=== PATIENT | female | born 1990 | race Caucasian/White ===

== ENCOUNTER 2018-04-04 13:09 | Inpatient (IN) | payer BC ==
[2018-04-04] MEDS ORDERED: Lidocaine 1% 50 ML MDV INJECT PRN (14:32)
[2018-04-04] MEDS ORDERED: Nalbuphine 10 MG/ML 10 ML MDV IVPUSH PRN (14:32)
[2018-04-04] MEDS ORDERED: Terbutaline 1 MG/ML SDV SUBCUT PRN (14:32)
[2018-04-04] MEDS ORDERED: Tranexamic Acid 1,000 MG in Sodium Chloride 0.9% 100 ML IV PRN (14:32)
[2018-04-04] MEDS ORDERED: Misoprostol 200 MCG Tab PO PRN (14:32)
[2018-04-04] MEDS ORDERED: Water For Irrigation,Sterile 1,000 ML Container IRR PRN (14:32)
[2018-04-04] MEDS ORDERED: Sodium Chloride 0.9% 10 ML Syringe FLUSH PRN (14:32)
[2018-04-04] MEDS ORDERED: Carboprost Tromethamine 250 MCG/1 ML Amp IM PRN (14:32)
[2018-04-04] MEDS ORDERED: Sodium Chloride 0.9% 2.5 ML Syringe FLUSH PRN (14:32)
[2018-04-04] MEDS ORDERED: Methylergonovine 0.2 MG/1 ML Amp IM PRN (14:32)
[2018-04-04] MEDS ORDERED: Butorphanol 1 MG/ML SDV IVPUSH PRN (14:32)
[2018-04-04] MEDS ORDERED: Oxytocin/0.9 % Sodium Chloride 30 UNIT/500 ML BAG IV SCH ×2 (14:45)
[2018-04-04] MEDS: Lactated Ringers 1,000 ML IV SCH ×3 (15:00→18:57)
[2018-04-04] MEDS ORDERED: Ampicillin 2 GM in Sodium Chloride 0.9% 100 ML IV ONE (15:00)
[2018-04-04] MEDS ORDERED: fentaNYL 100 MCG/2 ML SDV ONE (18:00)
[2018-04-04] MEDS ORDERED: Ampicillin 1 GM in Sodium Chloride 0.9% 50 ML IV SCH (19:00)
--- NOTE | 2018-04-04 19:34 | PCM.PREANE ---
Preanesthetic Assessment - Anesthesia/Transfusion/Family Hx Anesthesia History: Prior Anesthesia Without Reaction (labor epidural without problems 2 1/2 yrs ago) Family History of Anesthesia Reaction: No Transfusion History: No Prior Transfusion(s) Intubation History: Unknown - Review of Systems General: No Symptoms, Night Sweats Cardiovascular: No Symptoms Gastrointestinal: No Symptoms Neurological: No Symptoms Other: Reports: None - Physical Assessment NPO Status Date: 04/04/18 NPO Status Time: 12:00 (sips/chips) Height: 5 ft 6 in Weight: 205 lb ASA Class: 2 Mental Status: Alert & Oriented x3 Airway Class: Mallampati = 1 Dentition: Reports: Normal Dentition Thyro-Mental Finger Breadths: 3 Mouth Opening Finger Breadths: 3 ROM/Head Extension: Full Lungs: Clear to Auscultation, Normal Respiratory Effort Cardiovascular: Regular Rate, Regular Rhythm - Lab Values: Laboratory Last Values WBC 10.82 K/uL (4.0-11.0) 04/04/18 14:55 RBC 4.37 M/uL (4.30-5.90) 04/04/18 14:55 Hgb 11.6 g/dL (12.0-16.0) L 04/04/18 14:55 Hct 35.1 % (36.0-46.0) L 04/04/18 14:55 MCV 80.3 fL (80.0-98.0) 04/04/18 14:55 MCH 26.5 pg (27.0-32.0) L 04/04/18 14:55 MCHC 33.0 g/dL (31.0-37.0) 04/04/18 14:55 RDW Std Deviation 48.1 fl (28.0-62.0) 04/04/18 14:55 RDW Coeff of Chuck 16 % (11.0-15.0) H 04/04/18 14:55 Plt Count 248 K/uL (150-400) 04/04/18 14:55 MPV 11.20 fL (7.40-12.00) 04/04/18 14:55 Nucleated RBC % 0.0 /100WBC 04/04/18 14:55 Nucleated RBCs # 0 K/uL 04/04/18 14:55 Membrane Rupture POSITIVE 04/04/18 13:30 Blood Type A POSITIVE 04/04/18 14:55 Antibody Screen NEGATIVE 04/04/18 14:55 - Allergies Allergies/Adverse Reactions: Allergies Allergy/AdvReac Type Severity Reaction Status Date / Time No Known Allergies Allergy Verified 11/01/16 15:21 - Blood Blood Available: No Product(s) Available: None - Anesthesia Plan Free Text/Narrative:: Labor Epidural Pre-Op Medication Ordered: None - Acknowledgements Anesthesia Type Planned: Epidural Pt an Appropriate Candidate for the Planned Anesthesia: Yes Alternatives and Risks of Anesthesia Discussed w Pt/Guardian: Yes Pt/Guardian Understands and Agrees with Anesthesia Plan: Yes PreAnesthesia Questionnaire Respiratory History: Reports: Asthma (well controlled) Psychiatric History: Reports: Anxiety, Depression - Infectious Disease History Infectious Disease History: Reports: Chicken Pox - Past Surgical History HEENT Surgical History: Reports: Oral Surgery, Tonsillectomy, Other (See Below) - HOME MEDS Home Medications: Home Meds Albuterol [Ventolin HFA] 1 puff IN DAILY 09/06/14 [History] Mometasone/Formoterol [Dulera 100 Mcg/5 Mcg Inhaler] 1 puff IN DAILY 09/06/14 [ History] Montelukast [Singulair] 10 mg PO DAILY 09/06/14 [History] Sertraline [Zoloft] 100 mg PO DAILY 11/01/16 [History] - CURRENT (IN HOUSE) MEDS Current Meds: Current Medications Butorphanol Tartrate (Stadol) 1 mg IVPUSH Q1H PRN PRN Reason: Pain Carboprost Tromethamine (Hemabate Ds) 250 mcg IM ASDIRECTED PRN PRN Reason: Post Hemorrhage Tranexamic Acid 1,000 mg/ (Sodium Chloride) 110 mls @ 660 mls/hr IV ONETIME PRN PRN Reason: Bleeding Lactated Ringer's (Ringers, Lactated) 1,000 mls @ 150 mls/hr IV ASDIRECTED JULIUS Last Admin: 04/04/18 18:57 Dose: 150 mls/hr Oxytocin/Sodium Chloride (Oxytocin 30 Unit/500 Ml-Ns) 30 unit in 500 mls @ 999 mls/hr IV TITRATE JULIUS Oxytocin/Sodium Chloride (Oxytocin 30 Unit/500 Ml-Ns) 30 unit in 500 mls @ 2 mls/hr IV TITRATE JULIUS; Protocol Last Titration: 04/04/18 18:52 Dose: 16 munits/min, 16 mls/hr Ampicillin Sodium 1 gm/ Sodium (Chloride) 50 mls @ 100 mls/hr IV Q4H JULIUS Lidocaine HCl (Xylocaine 1%) 50 ml INJECT .ONCE PRN PRN Reason: Laceration repair Methylergonovine Maleate (Methergine) 0.2 mg IM ASDIRECTED PRN PRN Reason: Post Hemorrhage Misoprostol (Cytotec) 200 mcg PO .ONCE PRN PRN Reason: Post Hemorrhage Nalbuphine HCl (Nubain) 10 mg IVPUSH Q1H PRN PRN Reason: Pain (severe 7-10) Sodium Chloride (Saline Flush) 10 ml FLUSH ASDIRECTED PRN PRN Reason: Keep Vein Open Sodium Chloride (Saline Flush) 2.5 ml FLUSH ASDIRECTED PRN PRN Reason: Keep Vein Open Sterile Water (Sterile Water For Irrigation) 1,000 ml IRR ASDIRECTED PRN PRN Reason: delivery Terbutaline Sulfate (Brethine) 0.25 mg SUBCUT ASDIRECTED PRN PRN Reason: Tacysystole Discontinued Medications Fentanyl (Sublimaze) Confirm Administered Dose 100 mcg .ROUTE .STK-MED ONE Stop: 04/04/18 18:01 Ampicillin Sodium 2 gm/ Sodium (Chloride) 100 mls @ 200 mls/hr IV ONETIME ONE Stop: 04/04/18 15:29 Last Admin: 04/04/18 15:42 Dose: 200 mls/hr Ampicillin Sodium 1 gm/ Sodium (Chloride) 50 mls @ 100 mls/hr IV Q4H [facility] Fentanyl/Bupivacaine HCl (Bzgyqhht-Wzdth-Id 2 Mcg/Ml-0.125%) Confirm Administered Dose 100 mls @ as directed EP .STK-MED ONE Stop: 04/04/18 18:01
[2018-04-04] MEDS: Ampicillin 1 GM in Sodium Chloride 0.9% 50 ML IV SCH (19:38)
[2018-04-05] MEDS: Ampicillin 1 GM in Sodium Chloride 0.9% 50 ML IV SCH (03:49)
[2018-04-05] MEDS ORDERED: Acetaminophen 500 MG Tab PO PRN (06:24)
[2018-04-05] MEDS ORDERED: Witch Hazel Medicated Pads 40/Jar TOP PRN (06:24)
[2018-04-05] MEDS ORDERED: Docusate Sodium 100 MG Cap PO PRN (06:24)
[2018-04-05] MEDS ORDERED: Benzocaine/Menthol 20%-0.5% Spray 78 GM Cannister TOP PRN (06:24)
[2018-04-05] MEDS ORDERED: Bisacodyl 10 MG Supp RECTAL PRN (06:24)
[2018-04-05] MEDS ORDERED: Lanolin 100% Cream 7 GM Tube TOP PRN (06:24)
[2018-04-05] MEDS ORDERED: Methylergonovine 0.2 MG/1 ML Amp IM PRN (06:24)
[2018-04-05] MEDS ORDERED: Ibuprofen 400 MG Tab PO PRN (06:24)
--- NOTE | 2018-04-05 06:47 | PCM48HPAN ---
Post Anesthesia Note - EVALUATION WITHIN 48HRS OF ANESTHETIC Vital Signs in Normal Range: Yes Patient Participated in Evaluation: Yes Respiratory Function Stable: Yes Airway Patent: Yes Cardiovascular Function Stable: Yes Hydration Status Stable: Yes Pain Control Satisfactory: Yes Nausea and Vomiting Control Satisfactory: Yes Mental Status Recovered: Yes - COMMENTS/OBSERVATIONS Free Text/Narrative:: Pt doing well with good pain control thru labor. No apparent anesthesia complications.
--- NOTE | 2018-04-05 07:15 | OR ---
SURGEON: Yoko Parra M.D. DATE OF PROCEDURE: 04/05/2018 PREOPERATIVE DIAGNOSES: 1. A 39-4/7 weeks' gestation. 2. Premature rupture of membranes with induction. 3. Group B Streptococcus positive. POSTOPERATIVE DIAGNOSES: 1. A 39-4/7 weeks' gestation. 2. Premature rupture of membranes with induction. 3. Group B Streptococcus positive. PROCEDURES PERFORMED: Pitocin induction of labor, group B Strep prophylaxis, and term spontaneous vaginal delivery. ANESTHESIA: Epidural. ESTIMATED BLOOD LOSS: Less than 300 mL. FINDINGS: Liveborn female, scores 8 and 9, weighing 4150 g. Placenta; spontaneous, Velazco, intact with 3 vessels. Perineum intact. COMPLICATIONS: None known. DISPOSITION: Mother and baby are in LDRP in good condition. BRIEF HISTORY: This is a 27-year-old female G2, P1-0-0-1. She presents at 39-3/7 weeks' gestation with group B strep positive and spontaneous rupture of membranes in the midday. She was initially 3 to 4 cm dilated. She was started on Pitocin and also ampicillin for group B Strep prophylaxis. Approximately 5 hours after starting Pitocin, she was still 4 cm, 70%, and -2 station. Therefore, intrauterine pressure catheter was placed. Pitocin was continued up to a maximum of 28 milliunits per minute. She continued to have category 1 heart tones throughout labor. She progressed to complete. DESCRIPTION OF PROCEDURE: With the patient in dorsal lithotomy position, the patient pushed over 1-hour time period to a 5+ station, at which time the head was delivered spontaneously and atraumatically over the perineum with support with subsequent delivery of the 's shoulders and body without any difficulty. The was bulb suctioned by nose and mouth and handed to the mother in the presence of the nurse attending delivery. The was a liveborn female, scores 8 and 9, weighing 4150 g. After the cord had ceased to pulsate, it was doubly clamped and cut. Cord blood was collected for cord ABGs as well as routine cord blood sampling. Pitocin was initiated after delivery of the to assist with delivery of the placenta, which was delivered spontaneously, Velazco, intact with 3 vessels. Upon inspection of the pelvis and perineum, there were no periurethral, vaginal sidewall, cervical, rectal, or perineal lacerations. EBL was less than 300 mL. There were no known complications. Mother and baby are in LDRP in good condition. CURTIS EDDY /[id number]
[2018-04-05] MEDS ORDERED: Ondansetron 4 MG/2 ML SDV IVPUSH PRN (07:21)
[2018-04-05] MEDS ORDERED: FORMOTEROL INH SCH (09:00)
[2018-04-05] MEDS ORDERED: MOMETASONE INH SCH (09:00)
[2018-04-05] MEDS ORDERED: Albuterol 8 GM Inhaler INH SCH (09:00)
[2018-04-05] MEDS ORDERED: Montelukast 10 MG Tab PO SCH (09:00)
[2018-04-05] MEDS: Ibuprofen 800 MG Tab PO PRN ×2 (13:47→20:04)
[2018-04-05] MEDS: Sertraline 100 MG Tab PO SCH (13:48)
[2018-04-05] MEDS: Acetaminophen 500 MG Tab PO PRN (17:07)
[2018-04-05] MEDS: oxyCODONE 5 MG Tab PO PRN (23:47)
[2018-04-06] MEDS: oxyCODONE 5 MG Tab PO PRN (08:08)
[2018-04-06] MEDS: Acetaminophen 500 MG Tab PO PRN (08:08)
[2018-04-06] MEDS: Sertraline 100 MG Tab PO SCH (08:09)
--- NOTE | 2018-04-06 09:07 | PCM.PNPP ---
- General Info Date of Service: 04/06/18 Functional Status: Reports: Pain Controlled, Tolerating Diet, Ambulating, Urinating - Review of Systems General: Denies: Fever, Weakness Pulmonary: Denies: Shortness of Breath Cardiovascular: Denies: Chest Pain, Palpitations, Lightheadedness Gastrointestinal: Denies: Abdominal Pain, Nausea, Vomiting Genitourinary: Denies: Flank Pain Skin: Reports: No Symptoms - General Info Date of Service: 04/06/18 - Patient Data Vital Signs - Most Recent: Last Vital Signs Temp 36.4 C 04/06/18 05:00 Pulse 68 04/06/18 05:00 Resp 16 04/06/18 05:00 BP 106/58 L 04/06/18 05:00 Pulse Ox 97 04/06/18 05:00 Weight - Most Recent: 92.986 kg Lab Results - Last 24 Hours: Laboratory Results - last 24 hr 04/06/18 Range/Units 04:59 Hgb 10.3 L (12.0-16.0) g/dL Hct 32.2 L (36.0-46.0) % Med Orders - Current: Current Medications Acetaminophen (Tylenol Extra Strength) 500 mg PO Q4H PRN PRN Reason: Pain Last Admin: 04/05/18 23:48 Dose: 500 mg Acetaminophen (Tylenol Extra Strength) 1,000 mg PO Q4H PRN PRN Reason: Pain Last Admin: 04/06/18 08:08 Dose: 1,000 mg Albuterol (Ventolin Hfa) 8 gm INH DAILY JULIUS Last Admin: 04/05/18 13:49 Dose: Not Given Benzocaine/Menthol (Dermoplast Pain Relief 20%-0.5% Gary) 78 gm TOP ASDIRECTED PRN PRN Reason: Perineal Comfort Measure Bisacodyl (Dulcolax) 10 mg RECTAL .ONCE PRN PRN Reason: Constipation Docusate Sodium (Colace) 100 mg PO BID PRN PRN Reason: Constipation Emollient Ointment (Lansinoh Hpa) 0 gm TOP ASDIRECTED PRN PRN Reason: Sore Nipples Ibuprofen (Motrin) 400 mg PO Q4H PRN PRN Reason: Pain Ibuprofen (Motrin) 800 mg PO Q6H PRN PRN Reason: Pain Last Admin: 04/05/18 20:04 Dose: 800 mg Methylergonovine Maleate (Methergine) 0.2 mg IM .ONCE PRN PRN Reason: Excessive Vaginal Bleeding Montelukast Sodium (Singulair) 10 mg PO DAILY [facility] Last Admin: 04/05/18 13:48 Dose: Not Given Ondansetron HCl (Zofran) 4 mg IVPUSH Q6H PRN PRN Reason: Nausea/Vomiting Last Admin: 04/05/18 07:39 Dose: 4 mg Oxycodone HCl (Oxycodone) 5 mg PO Q2H PRN PRN Reason: Pain Last Admin: 04/06/18 08:08 Dose: 5 mg Mometasone/ (Formoterol 1 Puff) 1 each INH DAILY [facility] Last Admin: 04/05/18 13:49 Dose: Not Given Sertraline HCl (Zoloft) 100 mg PO DAILY [facility] Last Admin: 04/06/18 08:09 Dose: 100 mg Witch Olivia (Tucks) 1 pad TOP ASDIRECTED PRN PRN Reason: comfort care Discontinued Medications Butorphanol Tartrate (Stadol) 1 mg IVPUSH Q1H PRN PRN Reason: Pain Carboprost Tromethamine (Hemabate Ds) 250 mcg IM ASDIRECTED PRN PRN Reason: Post Hemorrhage Fentanyl (Sublimaze) Confirm Administered Dose 100 mcg .ROUTE .STK-MED ONE Stop: 04/04/18 18:01 Tranexamic Acid 1,000 mg/ (Sodium Chloride) 110 mls @ 660 mls/hr IV ONETIME PRN PRN Reason: Bleeding Lactated Ringer's (Ringers, Lactated) 1,000 mls @ 150 mls/hr IV ASDIRECTED [facility] Last Admin: 04/04/18 18:57 Dose: 150 mls/hr Oxytocin/Sodium Chloride (Oxytocin 30 Unit/500 Ml-Ns) 30 unit in 500 mls @ 999 mls/hr IV TITRATE JULIUS Oxytocin/Sodium Chloride (Oxytocin 30 Unit/500 Ml-Ns) 30 unit in 500 mls @ 2 mls/hr IV TITRATE [facility]; Protocol Last Titration: 04/05/18 04:20 Dose: 32 munits/min, 32 mls/hr Ampicillin Sodium 2 gm/ Sodium (Chloride) 100 mls @ 200 mls/hr IV ONETIME ONE Stop: 04/04/18 15:29 Last Admin: 04/04/18 15:42 Dose: 200 mls/hr Ampicillin Sodium 1 gm/ Sodium (Chloride) 50 mls @ 100 mls/hr IV Q4H JULIUS Ampicillin Sodium 1 gm/ Sodium (Chloride) 50 mls @ 100 mls/hr IV Q4H [facility] Last Admin: 04/05/18 03:49 Dose: 100 mls/hr Fentanyl/Bupivacaine HCl (Oeenlhpe-Eppqi-Wl 2 Mcg/Ml-0.125%) Confirm Administered Dose 100 mls @ as directed EP .STK-MED ONE Stop: 04/04/18 18:01 Fentanyl/Bupivacaine HCl (Lrzaipre-Mfjvr-La 2 Mcg/Ml-0.125%) Confirm Administered Dose 100 mls @ as directed EP .STK-MED ONE Stop: 04/05/18 00:56 Lidocaine HCl (Xylocaine 1%) 50 ml INJECT .ONCE PRN PRN Reason: Laceration repair Methylergonovine Maleate (Methergine) 0.2 mg IM ASDIRECTED PRN PRN Reason: Post Hemorrhage Misoprostol (Cytotec) 200 mcg PO .ONCE PRN PRN Reason: Post Hemorrhage Nalbuphine HCl (Nubain) 10 mg IVPUSH Q1H PRN PRN Reason: Pain (severe 7-10) Sodium Chloride (Saline Flush) 10 ml FLUSH ASDIRECTED PRN PRN Reason: Keep Vein Open Sodium Chloride (Saline Flush) 2.5 ml FLUSH ASDIRECTED PRN PRN Reason: Keep Vein Open Sterile Water (Sterile Water For Irrigation) 1,000 ml IRR ASDIRECTED PRN PRN Reason: delivery Last Admin: 04/05/18 05:51 Dose: 1,000 ml Terbutaline Sulfate (Brethine) 0.25 mg SUBCUT ASDIRECTED PRN PRN Reason: Tacysystole - Infant Interaction Support Person: - Recovery Exam Fundal Tone: Firm Fundal Level: 1 Fingerbreadths Below Umbilicus Fundal Placement: Midline Lochia Amount: Small Lochia Color: Rubra/Red Perineum Description: Intact, Minimal Bruising/Swelling Episiotomy/Laceration: None Bladder Status: Voiding - Exam General: Alert, Oriented Lungs: Normal Respiratory Effort Cardiovascular: Regular Rate, Regular Rhythm GI/Abdominal Exam: Soft Extremities: Pedal Edema (trace). No: Sharron's Sign Psy/Mental Status: Alert, Normal Affect - Problem List & Annotations (1) Vaginal delivery SNOMED Code(s): 271180067 Code(s): O80 - ENCOUNTER FOR FULL-TERM UNCOMPLICATED DELIVERY Status: Acute Current Visit: Yes - Problem List Review Problem List Initiated/Reviewed/Updated: Yes - Assessment Assessment:: PPD 1 status post - Plan Plan:: Discharge to home, follow up at [facility] 6 weeks. Continue PNV daily. Infection and bleeding warnings. Discharge instructions reviewed. Will monitor mood and call if feels needs to resume SSRI. Prefers not to at this time.
[2018-04-06 09:37] VITALS: BP 110/74
== END 2018-04-06 10:50 | disposition home or self-care (01) | DRG 560 ==
LOC: MW.OBCHECK 13:09 → MW.OB 13:14 → MW.OBCHECK 14:33 → MW.OB 17:05 → OBSVTOIN 04-05 05:51 → MW.OB 04-05 10:36
PROVIDERS: ADMIT Obstetrics & Gynecology; ATTEND Obstetrics & Gynecology
PROC: 10E0XZZ Delivery of Products of Conception, External Approach (ICD-10-PCS; principal; 2018-04-05)
PROC: 3E033VJ Introduction of Other Hormone into Peripheral Vein, Percutaneous Approach (ICD-10-PCS; 2018-04-05)
DX: O42.02 Full-term premature rupture of membranes, onset of labor within 24 hours of rupture (principal); O99.824 Streptococcus B carrier state complicating childbirth; Z3A.39 39 weeks gestation of pregnancy; Z37.0 Single live birth
CPT/HCPCS: 36415; 59025; 59409; 84112; 85014; 85018; 85027; 86850; 86900; 86901; A9270-GY; J0290; J2405; J2590; J7030; J7050; J7120

== ENCOUNTER 2018-04-10 19:36 | Emergency (ER) | payer BC ==
[2018-04-10] MEDS ORDERED: Sodium Chloride 0.9% 1,000 ML IV ONE (19:45)
[2018-04-10] MEDS ORDERED: Ondansetron 4 MG/2 ML SDV IVPUSH ONE (19:45)
[2018-04-10] MEDS ORDERED: HYDROmorphone 2 MG/ML Syringe IVPUSH ONE (19:45)
[2018-04-10] MEDS ORDERED: HYDROmorphone 1 MG/ML Syringe IVPUSH ONE (19:57)
--- NOTE | 2018-04-10 20:34 | EDM.PDOC ---
ED HPI GENERAL MEDICAL PROBLEM - General Chief Complaint: [employer]PER[employer]ORY [employer]ER Problem Stated Complaint: LOWER ABD PAIN Time Seen by Provider: 04/10/18 19:50 Source of Information: Reports: Patient History Limitations: Reports: No Limitations - History of Present Illness INITIAL COMMENTS - FREE TEXT/NARRATIVE: HISTORY AND PHYSICAL: History of present illness: [Comes to the emergency room complaining of vaginal bleeding. She is 5 days from her second . She delivered a full-term vaginally without any complications. She has had increased vaginal bleeding for the past couple of days and is passing quarter size, and somewhat larger than quarter sized, clots. She is soaking through a heavy pad every hour to hour and a half. She's having increased lower abdominal discomfort and low back pain. Denies fever and chills. No chest pain shortness of breath or difficulty breathing. denies leg pain. Review of systems: As per history of present illness and below otherwise all systems reviewed and negative. Past medical history: As per history of present illness and as reviewed below otherwise noncontributory. Surgical history: As per history of present illness and as reviewed below otherwise noncontributory. Social history: No reported history of drug or alcohol abuse. Family history: As per history of present illness and as reviewed below otherwise noncontributory. Physical exam: HEENT: Atraumatic, normocephalic. Oral mucous membranes are pink and moist. Lungs: Clear to auscultation, breath sounds equal bilaterally Heart: S1S2, regular, negative for clicks, rubs, or JVD. Abdomen: Mild tenderness over lower abdomen, but no distention. Negative for masses, guarding and rebound. mild R cvat. Pelvis: Stable nontender. Genitourinary: Deferred. Rectal: Deferred. Extremities: Atraumatic, negative for cords or calf pain. Neurovascular unremarkable. Neuro: Awake, alert, oriented. Motor and sensory unremarkable throughout. Exam nonfocal. Diagnostics: [Pelvic U/S, CBC, CMP, quantitative hCG, UA, blood type and screen, PT/INR] Therapeutics: [Dilaudid 1 mg IV, Zofran 4 mg IV, 1 L normal saline ] Impression: [post vaginal bleeding. ] Plan: [White blood cell 18.7. Quant Hcg is 56. Pelvic U/S shows enlarged uterus consistent w/ recent state, hemorrhage w/in endometrial canal. No retained products of conception. Labs are otherwise unremarkable. Discussed patient's condition and findings with on-call OB, Dr. Parra, who recommends tranexamic acid and follow-up with Dr. Baker (patient's OB) tomorrow. Rx written for tranexamic acid 650mg (#30) si tabs po TID 0 RF's. Return precautions are reviewed with the patient. She is in agreement with today's plan. All questions are answered and concerns are addressed. Definitive disposition and diagnosis as appropriate pending reevaluation and review of above. Lower Abdomen Pain Score (Numeric/FACES): 0 Back Pain Score (Numeric/FACES): 3 - Related Data Allergies Allergy/AdvReac Type Severity Reaction Status Date / Time No Known Allergies Allergy Verified 11/01/16 15:21 Home Meds: Home Meds Albuterol [Ventolin HFA] 1 puff IN DAILY 09/06/14 [History] Montelukast [Singulair] 10 mg PO DAILY 09/06/14 [History] Sertraline [Zoloft] 100 mg PO DAILY 11/01/16 [History] Fluticasone/Vilanterol [Breo Ellipta 100-25 MCG Inhalation Kit] 1 each IH [History] Past Medical History Respiratory History: Reports: Asthma [employer]PER[employer]ORY [employer]ER History: Reports: Psychiatric History: Reports: Anxiety, Depression - Infectious Disease History Infectious Disease History: Reports: Chicken Pox - Past Surgical History HEENT Surgical History: Reports: Oral Surgery, Tonsillectomy, Other (See Below) Social & Family History - Family History Family Medical History: Noncontributory - Tobacco Use Smoking Status *Q: Never Smoker - Caffeine Use Caffeine Use: Reports: Soda - Recreational Drug Use Recreational Drug Use: No ED ROS GENERAL - Review of Systems Review Of Systems: ROS reveals no pertinent complaints other than HPI. ED EXAM - Physical Exam Exam: See Below Course - Vital Signs Last Recorded V/S: Last Vital Signs Temp 98.9 F 04/10/18 19:44 Pulse 86 04/10/18 20:47 Resp 16 04/10/18 20:47 BP 130/87 04/10/18 20:47 Pulse Ox 98 04/10/18 20:47 - Orders/Labs/Meds Orders: Active Orders 24 hr Category Date Time Status Pelvis Non OB Comp [US] Stat Exams 04/10/18 19:45 Taken UA W/O MICROSCOPIC [URIN] Stat Lab 04/10/18 21:45 Ordered Labs: Laboratory Tests 04/10/18 04/10/18 04/10/18 Range/Units 19:50 19:50 19:50 WBC 18.74 H (4.0-11.0) K/uL RBC 4.70 (4.30-5.90) M/uL Hgb 12.3 (12.0-16.0) g/dL Hct 37.6 (36.0-46.0) % MCV 80.0 (80.0-98.0) fL MCH 26.2 L (27.0-32.0) pg MCHC 32.7 (31.0-37.0) g/dL RDW Std Deviation 47.8 (28.0-62.0) fl RDW Coeff of Chuck 17 H (11.0-15.0) % Plt Count 353 (150-400) K/uL MPV 9.60 (7.40-12.00) fL Neut % (Auto) 80.5 H (48.0-80.0) % Lymph % (Auto) 9.2 L (16.0-40.0) % [place] % (Auto) 8.2 (0.0-15.0) % Eos % (Auto) 1.9 (0.0-7.0) % Baso % (Auto) 0.2 (0.0-1.5) % Neut # (Auto) 15.1 H (1.4-5.7) K/uL Lymph # (Auto) 1.7 (0.6-2.4) K/uL [place] # (Auto) 1.5 H (0.0-0.8) K/uL Eos # (Auto) 0.4 (0.0-0.7) K/uL Baso # (Auto) 0.0 (0.0-0.1) K/uL Nucleated RBC % 0.0 /100WBC Nucleated RBCs # 0 K/uL INR 0.94 Sodium 138 (136-145) mmol/L Potassium 4.0 (3.5-5.1) mmol/L Chloride 104 (98-107) mmol/L Carbon Dioxide 21.8 (21.0-32.0) mmol/L BUN 14 (7.0-18.0) mg/dL Creatinine 0.8 (0.6-1.0) mg/dL Est Cr Clr Drug Dosing TNP Estimated GFR (MDRD) > 60.0 ml/min Glucose 106 (74-106) mg/dL Calcium 8.3 L (8.5-10.1) mg/dL Total Bilirubin 0.3 (0.2-1.0) mg/dL AST 20 (15-37) IU/L ALT 28 (14-63) IU/L Alkaline Phosphatase 127 H (46-116) U/L Total Protein 7.0 (6.4-8.2) g/dL Albumin 3.1 L (3.4-5.0) g/dL Globulin 3.9 H (2.0-3.5) g/dL Albumin/Globulin Ratio 0.8 L (1.3-2.8) HCG, Quant mIU/mL Blood Type Antibody Screen 04/10/18 04/10/18 Range/Units 19:50 19:55 WBC (4.0-11.0) K/uL RBC (4.30-5.90) M/uL Hgb (12.0-16.0) g/dL Hct (36.0-46.0) % MCV (80.0-98.0) fL MCH (27.0-32.0) pg MCHC (31.0-37.0) g/dL RDW Std Deviation (28.0-62.0) fl RDW Coeff of Chuck (11.0-15.0) % Plt Count (150-400) K/uL MPV (7.40-12.00) fL Neut % (Auto) (48.0-80.0) % Lymph % (Auto) (16.0-40.0) % [place] % (Auto) (0.0-15.0) % Eos % (Auto) (0.0-7.0) % Baso % (Auto) (0.0-1.5) % Neut # (Auto) (1.4-5.7) K/uL Lymph # (Auto) (0.6-2.4) K/uL [place] # (Auto) (0.0-0.8) K/uL Eos # (Auto) (0.0-0.7) K/uL Baso # (Auto) (0.0-0.1) K/uL Nucleated RBC % /100WBC Nucleated RBCs # K/uL INR Sodium (136-145) mmol/L Potassium (3.5-5.1) mmol/L Chloride (98-107) mmol/L Carbon Dioxide (21.0-32.0) mmol/L BUN (7.0-18.0) mg/dL Creatinine (0.6-1.0) mg/dL Est Cr Clr Drug Dosing Estimated GFR (MDRD) ml/min Glucose (74-106) mg/dL Calcium (8.5-10.1) mg/dL Total Bilirubin (0.2-1.0) mg/dL AST (15-37) IU/L ALT (14-63) IU/L Alkaline Phosphatase (46-116) U/L Total Protein (6.4-8.2) g/dL Albumin (3.4-5.0) g/dL Globulin (2.0-3.5) g/dL Albumin/Globulin Ratio (1.3-2.8) HCG, Quant 56.0 mIU/mL Blood Type A POSITIVE Antibody Screen NEGATIVE Meds: Medications Discontinued Medications Generic Name Dose Route Start Last Admin Trade Name Jamieq PRN Reason Stop Dose Admin Hydromorphone HCl 1 mg 04/10/18 19:45 04/10/18 20:07 Dilaudid IVPUSH 04/10/18 19:46 Not Given ONETIME ONE Hydromorphone HCl 1 mg 04/10/18 19:57 04/10/18 20:01 Dilaudid IVPUSH 04/10/18 19:58 1 mg ONETIME ONE Administration Sodium Chloride 1,000 mls @ 999 mls/hr 04/10/18 19:45 04/10/18 20:01 Normal Saline IV 04/10/18 20:45 999 mls/hr STAT ONE Administration Ondansetron HCl 4 mg 04/10/18 19:45 04/10/18 20:01 Zofran IVPUSH 04/10/18 19:46 4 mg ONETIME ONE Administration Departure - Departure Time of Disposition: 21:35 Disposition: Home, Self-Care 01 Condition: Good Clinical Impression: Vaginal bleeding - Discharge Information Instructions: Abnormal Uterine Bleeding, [id number] Referrals: PCP,None [Primary Care Provider] - Forms: ED Department Discharge Additional Instructions: The following information is given to patients seen in the emergency department who are being discharged to home. This information is to outline your options for follow-up care. We provide all patients seen in our emergency department with a follow-up referral. The need for follow-up, as well as the timing and circumstances, are variable depending upon the specifics of your emergency department visit. If you don't have a primary care physician on staff, we will provide you with a referral. We always advise you to contact your personal physician following an emergency department visit to inform them of the circumstance of the visit and for follow-up with them and/or the need for any referrals to a consulting specialist. The emergency department will also refer you to a specialist when appropriate. This referral assures that you have the opportunity for follow-up care with a specialist. All of these measure are taken in an effort to provide you with optimal care, which includes your follow-up. Under all circumstances we always encourage you to contact your private physician who remains a resource for coordinating your care. When calling for follow-up care, please make the office aware that this follow-up is from your recent emergency room visit. If for any reason you are refused follow-up, please contact the [facility] emergency department at and asked to speak to the emergency department charge nurse. [facility] [address] [place] [id number] Follow-up with your OB tomorrow as instructed. Fill prescription as instructed and start medication tomorrow. Return to ER as needed as discussed.
[2018-04-10 20:45] LABS: CHLORIDE,CL 104 mmol/L (98-107); SODIUM,NA 138 mmol/L (136-145)
[2018-04-10 20:48] VITALS: BP 130/87
--- NOTE | 2018-04-12 09:17 | US ---
EXAM DATE: 04/10/18 PATIENT'S AGE: 27 Patient: DELFIN MCNAIR Facility: [place], [place] Site . Site : 1990 Study: US Pelvis [id number] 8:48:40 PM Ordering Physician: Doctor Bey Final Report: HISTORY: Recent . Increased pelvic discomfort and bleeding. TECHNIQUE: Transabdominal pelvic ultrasound. COMPARISON: No prior. FINDINGS: Uterus measures 17.1 x 6.1 x 11.5 cm compatible with recent state. The endometrium is heterogeneous in appearance measuring up to 13 mm in thickness. There is likely some hemorrhage within the endometrial canal. No definite retained products conception. - The right ovary measures 1.3 x 5 x 1.9 cm in size. The left ovary measures 2.8 x 1.8 x 1.9 cm in size. The ovaries appear normal. There is no significant pelvic free fluid. IMPRESSION: 1. Enlarged uterus compatible with recent state. 2. Heterogeneous appearance of the endometrium which measures up to 13 mm in thickness. Probable hemorrhage within the endometrial canal. No definitive retained products of conception. Dictated by Lior Cespedes MD @ 04/10/2018 9:15:08 PM Dictated by: Lior Cespedes MD @ 04/10/2018 21:15:14 (Electronic Signature) Report Signed by Proxy. SAHARA
== END 2018-04-10 21:56 | disposition home or self-care (01) ==
LOC: MW.ED 19:36
DX: O72.2 Delayed and secondary postpartum hemorrhage (principal); O99.345 Other mental disorders complicating the puerperium; F53 Mental and behavioral disorders associated with the puerperium, not elsewhere classified; F41.9 Anxiety disorder, unspecified; F32.9 Major depressive disorder, single episode, unspecified; Z79.899 Other long term (current) drug therapy
CPT/HCPCS: 36415; 76856; 80053; 81003; 84702; 85025; 85610; 86850; 86900; 86901; 96361; 96374; 96375; 99283; J1170; J2405; J7040

== ENCOUNTER 2019-03-13 08:58 | Day surgery (SDC) | payer BC ==
[2019-03-13] MEDS ORDERED: Sodium Chloride 0.9% 2.5 ML Syringe FLUSH PRN (09:04)
[2019-03-13] MEDS ORDERED: Sodium Chloride 0.9% 1,000 ML IV ONE (09:04)
[2019-03-13] MEDS ORDERED: Ketorolac 30 MG/ML SDV IVPUSH ONE (09:04)
[2019-03-13] MEDS ORDERED: Sodium Chloride 0.9% 10 ML Syringe FLUSH PRN (09:04)
--- NOTE | 2019-03-13 09:21 | EDM.PDOC ---
ED HPI GENERAL MEDICAL PROBLEM - General Chief Complaint: Abdominal Pain Stated Complaint: LOWER PAIN Time Seen by Provider: 03/13/19 09:10 Source of Information: Reports: Patient History Limitations: Reports: No Limitations - History of Present Illness INITIAL COMMENTS - FREE TEXT/NARRATIVE: History of present illness: []Patient started having crampy abdominal pain last night and is in her lower abdomen to the right side now. Patient is not on her menses and denies being . Patient took 3 ibuprofen this morning but has not eaten since last night. Review of systems: As per history of present illness and below otherwise all systems reviewed and negative. Past medical history: As per history of present illness and as reviewed below otherwise noncontributory. Surgical history: As per history of present illness and as reviewed below otherwise noncontributory. Social history: No reported history of drug or alcohol abuse. Family history: As per history of present illness and as reviewed below otherwise noncontributory. Physical exam: General: Well developed, well nourished in NAD HEENT: Atraumatic, normocephalic, pupils reactive, negative for conjunctival pallor or scleral icterus, mucous membranes moist, throat clear, neck supple, nontender, trachea midline. Lungs: Clear to auscultation, breath sounds equal bilaterally, chest nontender. Heart: S1S2, regular, negative for clicks, rubs, or JVD. Abdomen: NABS, Soft, nondistended, diffuse tenderness with worse pain and right lower quadrant, no guarding or rebound. Negative for masses or hepatosplenomegaly. Negative for costovertebral tenderness. Pelvis: Stable nontender. Genitourinary: Deferred. Rectal: Deferred. Extremities: Atraumatic, negative for cords or calf pain. Neurovascular unremarkable. Neuro: Awake, alert, oriented. Cranial nerves II through XII unremarkable. Cerebellum unremarkable. Motor and sensory unremarkable throughout. Exam nonfocal. Skin:warm and dry Diagnostics: CBC, chemistry, lipase, UA, hCG, CT abdomen and pelvis with contrast Therapeutics: IV fluids, Toradol ED Course: Dr. Barnes notified and will be taking Rheanda to the OR Impression: Daily appendicitis Prescriptions: N/a Plan: Acute appendicitis admit to Dr. Ibanez to OR Definitive disposition and diagnosis as appropriate pending reevaluation and review of above. RLQ Pain Score (Numeric/FACES): 6 - Related Data Allergies Allergy/AdvReac Type Severity Reaction Status Date / Time No Known Allergies Allergy Verified 03/13/19 09:11 Home Meds: Home Meds Albuterol [Ventolin HFA] 1 puff IN DAILY 09/06/14 [History] Montelukast [Singulair] 10 mg PO DAILY 09/06/14 [History] Fluticasone/Vilanterol [Breo Ellipta 100-25 MCG Inhalation Kit] 1 each IH ASDIRECTED 04/10/18 [History] Venlafaxine [Effexor] 25 mg PO BID 03/13/19 [History] Past Medical History Respiratory History: Reports: Asthma [employer] History: Reports: Psychiatric History: Reports: Anxiety, Depression - Infectious Disease History Infectious Disease History: Reports: Chicken Pox - Past Surgical History HEENT Surgical History: Reports: Oral Surgery, Tonsillectomy, Other (See Below) Social & Family History - Family History Family Medical History: Noncontributory - Caffeine Use Caffeine Use: Reports: Soda ED ROS GENERAL - Review of Systems Review Of Systems: ROS reveals no pertinent complaints other than HPI. ED EXAM, GI/ABD - Physical Exam Exam: See Below (See history of present illness) Course - Vital Signs Last Recorded V/S: Last Vital Signs Temp 96.8 F 03/13/19 09:12 Pulse 90 03/13/19 09:12 Resp 18 03/13/19 10:27 BP 152/84 H 03/13/19 09:12 Pulse Ox 95 03/13/19 10:27 - Orders/Labs/Meds Orders: Active Orders 24 hr Category Date Time Status Lactated Ringers [Ringers, Lactated] 1,000 ml Med 03/13/19 10:15 Active IV STAT Piperacillin/Tazobactam [Piperacil-Tazobact] 3.375 gm Med 03/13/19 10:09 Active Sodium Chloride 0.9% [Normal Saline] 50 ml IV ONETIME Sodium Chloride 0.9% [Saline Flush] Med 03/13/19 09:04 Active 10 ml FLUSH ASDIRECTED PRN Sodium Chloride 0.9% [Saline Flush] Med 03/13/19 09:04 Active 2.5 ml FLUSH ASDIRECTED PRN Saline Lock Insert [OM.PC] Stat Oth 03/13/19 09:03 Ordered Medication Orders Lactated Ringer's (Ringers, Lactated) 1,000 mls @ 125 mls/hr IV STAT JULIUS Last Admin: 03/13/19 10:17 Dose: 125 mls/hr Piperacillin Sod/Tazobactam (Sod 3.375 gm/ Sodium Chloride) 50 mls @ 100 mls/ hr IV ONETIME ONE Stop: 03/13/19 10:38 Last Admin: 03/13/19 10:17 Dose: 100 mls/hr Sodium Chloride (Saline Flush) 10 ml FLUSH ASDIRECTED PRN PRN Reason: Keep Vein Open Sodium Chloride (Saline Flush) 2.5 ml FLUSH ASDIRECTED PRN PRN Reason: Keep Vein Open Labs: Laboratory Tests 03/13/19 03/13/19 03/13/19 Range/Units 09:15 09:15 09:20 WBC 12.75 H (4.0-11.0) K/uL RBC 5.07 (4.30-5.90) M/uL Hgb 14.1 (12.0-16.0) g/dL Hct 42.2 (36.0-46.0) % MCV 83.2 (80.0-98.0) fL MCH 27.8 (27.0-32.0) pg MCHC 33.4 (31.0-37.0) g/dL RDW Std Deviation 40.0 (28.0-62.0) fl RDW Coeff of Chuck 13 (11.0-15.0) % Plt Count 296 (150-400) K/uL MPV 10.20 (7.40-12.00) fL Neut % (Auto) 75.3 (48.0-80.0) % Lymph % (Auto) 13.9 L (16.0-40.0) % [place] % (Auto) 8.2 (0.0-15.0) % Eos % (Auto) 2.4 (0.0-7.0) % Baso % (Auto) 0.2 (0.0-1.5) % Neut # (Auto) 9.6 H (1.4-5.7) K/uL Lymph # (Auto) 1.8 (0.6-2.4) K/uL [place] # (Auto) 1.1 H (0.0-0.8) K/uL Eos # (Auto) 0.3 (0.0-0.7) K/uL Baso # (Auto) 0.0 (0.0-0.1) K/uL Nucleated RBC % 0.0 /100WBC Nucleated RBCs # 0 K/uL Sodium 139 (136-145) mmol/L Potassium 4.2 (3.5-5.1) mmol/L Chloride 104 (98-107) mmol/L Carbon Dioxide 22.1 (21.0-32.0) mmol/L BUN 12 (7.0-18.0) mg/dL Creatinine 0.8 (0.6-1.0) mg/dL Est Cr Clr Drug Dosing 96.26 mL/min Estimated GFR (MDRD) > 60.0 ml/min Glucose 111 H (74-106) mg/dL Calcium 9.4 (8.5-10.1) mg/dL Total Bilirubin 0.5 (0.2-1.0) mg/dL AST 15 (15-37) IU/L ALT 19 (14-63) IU/L Alkaline Phosphatase 49 (46-116) U/L Total Protein 8.1 (6.4-8.2) g/dL Albumin 4.4 (3.4-5.0) g/dL Globulin 3.7 (2.6-4.0) g/dL Albumin/Globulin Ratio 1.2 (0.9-1.6) Urine Color YELLOW Urine Appearance CLEAR Urine pH 6.0 (5.0-8.0) Ur Specific [place] 1.020 (1.001-1.035) Urine Protein NEGATIVE (NEGATIVE) mg/dL Urine Glucose (UA) NEGATIVE (NEGATIVE) mg/dL Urine Ketones NEGATIVE (NEGATIVE) mg/dL Urine Occult Blood NEGATIVE (NEGATIVE) Urine Nitrite NEGATIVE (NEGATIVE) Urine Bilirubin NEGATIVE (NEGATIVE) Urine Urobilinogen 0.2 (<2.0) EU/dL Ur Leukocyte Esterase SMALL H (NEGATIVE) Urine RBC 0-1 (0-2/HPF) Urine WBC 4-5 (0-5/HPF) Ur Epithelial Cells MODERATE (NONE-FEW) Urine Bacteria 1+ H (NEGATIVE) Urine HCG, Qual (NEGATIVE) 03/13/19 Range/Units 09:20 WBC (4.0-11.0) K/uL RBC (4.30-5.90) M/uL Hgb (12.0-16.0) g/dL Hct (36.0-46.0) % MCV (80.0-98.0) fL MCH (27.0-32.0) pg MCHC (31.0-37.0) g/dL RDW Std Deviation (28.0-62.0) fl RDW Coeff of Chuck (11.0-15.0) % Plt Count (150-400) K/uL MPV (7.40-12.00) fL Neut % (Auto) (48.0-80.0) % Lymph % (Auto) (16.0-40.0) % [place] % (Auto) (0.0-15.0) % Eos % (Auto) (0.0-7.0) % Baso % (Auto) (0.0-1.5) % Neut # (Auto) (1.4-5.7) K/uL Lymph # (Auto) (0.6-2.4) K/uL [place] # (Auto) (0.0-0.8) K/uL Eos # (Auto) (0.0-0.7) K/uL Baso # (Auto) (0.0-0.1) K/uL Nucleated RBC % /100WBC Nucleated RBCs # K/uL Sodium (136-145) mmol/L Potassium (3.5-5.1) mmol/L Chloride (98-107) mmol/L Carbon Dioxide (21.0-32.0) mmol/L BUN (7.0-18.0) mg/dL Creatinine (0.6-1.0) mg/dL Est Cr Clr Drug Dosing mL/min Estimated GFR (MDRD) ml/min Glucose (74-106) mg/dL Calcium (8.5-10.1) mg/dL Total Bilirubin (0.2-1.0) mg/dL AST (15-37) IU/L ALT (14-63) IU/L Alkaline Phosphatase (46-116) U/L Total Protein (6.4-8.2) g/dL Albumin (3.4-5.0) g/dL Globulin (2.6-4.0) g/dL Albumin/Globulin Ratio (0.9-1.6) Urine Color Urine Appearance Urine pH (5.0-8.0) Ur Specific [place] (1.001-1.035) Urine Protein (NEGATIVE) mg/dL Urine Glucose (UA) (NEGATIVE) mg/dL Urine Ketones (NEGATIVE) mg/dL Urine Occult Blood (NEGATIVE) Urine Nitrite (NEGATIVE) Urine Bilirubin (NEGATIVE) Urine Urobilinogen (<2.0) EU/dL Ur Leukocyte Esterase (NEGATIVE) Urine RBC (0-2/HPF) Urine WBC (0-5/HPF) Ur Epithelial Cells (NONE-FEW) Urine Bacteria (NEGATIVE) Urine HCG, Qual NEGATIVE (NEGATIVE) Meds: Medications Generic Name Dose Route Start Last Admin Trade Name Freq PRN Reason Stop Dose Admin Lactated Ringer's 1,000 mls @ 125 mls/hr 03/13/19 10:15 03/13/19 10:17 Ringers, Lactated IV 125 mls/hr STAT JULIUS Administration Piperacillin Sod/Tazobactam 50 mls @ 100 mls/hr 03/13/19 10:09 03/13/19 10:17 Sod 3.375 gm/ Sodium Chloride IV 03/13/19 10:38 100 mls/hr ONETIME ONE Administration Sodium Chloride 10 ml 03/13/19 09:04 Saline Flush FLUSH ASDIRECTED PRN Keep Vein Open Sodium Chloride 2.5 ml 03/13/19 09:04 Saline Flush FLUSH ASDIRECTED PRN Keep Vein Open Discontinued Medications Generic Name Dose Route Start Last Admin Trade Name Freq PRN Reason Stop Dose Admin Bupivacaine HCl Confirm 03/13/19 10:20 Marcaine 0.5% Administered 03/13/19 10:21 Dose 30 ml .ROUTE .STK-MED ONE Fentanyl Confirm 03/13/19 10:15 Sublimaze Administered 03/13/19 10:16 Dose 250 mcg .ROUTE .STK-MED ONE Sodium Chloride 1,000 mls @ 999 mls/hr 03/13/19 09:04 03/13/19 09:20 Normal Saline IV 03/13/19 10:04 999 mls/hr .Bolus ONE Administration Iopamidol 90 ml 03/13/19 10:02 03/13/19 10:02 Isovue Multipack-370 (76%) IVPUSH 03/13/19 10:03 90 ml ONETIME STA Administration Ketorolac Tromethamine 30 mg 03/13/19 09:04 03/13/19 09:20 Toradol IVPUSH 03/13/19 09:05 30 mg ONETIME ONE Administration Lidocaine Confirm 03/13/19 10:15 Xylocaine-Mpf 2% Administered 03/13/19 10:16 Dose 5 ml .ROUTE .STK-MED ONE Midazolam HCl Confirm 03/13/19 10:15 Versed 1 Mg/Ml Administered 03/13/19 10:16 Dose 2 mg .ROUTE .STK-MED ONE Ondansetron HCl Confirm 03/13/19 10:15 Zofran Administered 03/13/19 10:16 Dose 4 mg .ROUTE .STK-MED ONE Propofol Confirm 03/13/19 10:15 Diprivan 20 Ml Administered 03/13/19 10:16 Dose 200 mg .ROUTE .STK-MED ONE Rocuronium [place] Confirm 03/13/19 10:15 Zemuron Administered 03/13/19 10:16 Dose 100 mg .ROUTE .STK-MED ONE Succinylcholine Chloride Confirm 03/13/19 10:15 Succinylcholine Chloride Administered 03/13/19 10:16 Dose 200 mg .ROUTE .STK-MED ONE Departure - Departure Time of Disposition: 10:08 Disposition: Still A Patient 28 Condition: Good Clinical Impression: Acute appendicitis Qualifiers: Acute appendicitis type: unspecified acute appendicitis type Qualified Code(s) : K35.80 - Unspecified acute appendicitis - Discharge Information *PRESCRIPTION DRUG MONITORING PROGRAM REVIEWED*: No *COPY OF PRESCRIPTION DRUG MONITORING REPORT IN PATIENT FRANCISCO: No - My Orders Last 24 Hours: My Active Orders 03/13/19 09:03 Saline Lock Insert [OM.PC] Stat 03/13/19 09:04 Sodium Chloride 0.9% [Saline Flush] 10 ml FLUSH ASDIRECTED PRN Sodium Chloride 0.9% [Saline Flush] 2.5 ml FLUSH ASDIRECTED PRN - Assessment/Plan Last 24 Hours: My Active Orders 03/13/19 09:03 Saline Lock Insert [OM.PC] Stat 03/13/19 09:04 Sodium Chloride 0.9% [Saline Flush] 10 ml FLUSH ASDIRECTED PRN Sodium Chloride 0.9% [Saline Flush] 2.5 ml FLUSH ASDIRECTED PRN
[2019-03-13] MEDS ORDERED: Iopamidol 755 MG/ML 500 ML Multipack Bottle IVPUSH STA (10:02)
[2019-03-13] MEDS ORDERED: Piperacillin/Tazobactam 3.375 GM in Sodium Chloride 0.9% 50 ML IV ONE (10:09)
[2019-03-13 10:14] LABS: CHLORIDE,CL 104 mmol/L (98-107); SODIUM,NA 139 mmol/L (136-145)
--- NOTE | 2019-03-13 10:14 | CT ---
CT of the abdomen and pelvis with contrast. HISTORY: Pain TECHNIQUE: Axial CT images were obtained of the abdomen and pelvis following administration of 90 mL of Isovue-370 in the left antecubital fossa without complication. Coronal and sagittal reconstructions obtained. FINDINGS: The lung bases are clear without a pleural effusion. The liver, spleen, adrenal glands, pancreas appear normal. Gallbladder is normal. There is no bulky retroperitoneal lymphadenopathy or abdominal ascites. The kidneys enhance and function symmetrically without evidence of obstructive uropathy. The large and small bowel are normal caliber without evidence of obstruction. The midportion of the appendix is bulbous with adjacent stranding. No evidence of rupture. No significant free fluid or free air. The uterus. Normal. Likely dominant follicle within the left ovary. No bulky pelvic lymphadenopathy. No suspicious osseous abnormalities identified. IMPRESSION: 1. Early appendicitis.
[2019-03-13] MEDS ORDERED: fentaNYL 250 MCG/5 ML SDV ONE (10:15)
[2019-03-13] MEDS ORDERED: Ondansetron 4 MG/2 ML SDV ONE (10:15)
[2019-03-13] MEDS ORDERED: Midazolam 1 MG/ML 2 ML SDV ONE (10:15)
[2019-03-13] MEDS ORDERED: Propofol 200 MG/20 ML SDV ONE (10:15)
[2019-03-13] MEDS ORDERED: Lidocaine 2% 5 ML SDV ONE (10:15)
[2019-03-13] MEDS ORDERED: Rocuronium 100 MG/10 ML Syringe ONE (10:15)
[2019-03-13] MEDS: Lactated Ringers 1,000 ML IV SCH ×2 (10:17→15:37)
[2019-03-13] MEDS ORDERED: Bupivacaine 0.5% 30 ML SDV ONE ×2 (10:20→10:27)
--- NOTE | 2019-03-13 10:27 | PCM.PREANE ---
Preanesthetic Assessment - Anesthesia/Transfusion/Family Hx Anesthesia History: Prior Anesthesia Without Reaction Family History of Anesthesia Reaction: No Transfusion History: No Prior Transfusion(s) Intubation History: Unknown - Review of Systems General: No Symptoms Pulmonary: No Symptoms Cardiovascular: No Symptoms Gastrointestinal: No Symptoms Neurological: No Symptoms Other: Reports: None - Physical Assessment NPO Status Date: 03/12/19 NPO Status Time: 22:00 O2 Sat by Pulse Oximetry: 95 Respiratory Rate: 18 Vital Signs: Last Vital Signs Temp 96.8 F 03/13/19 09:12 Pulse 90 03/13/19 09:12 Resp 18 03/13/19 09:12 BP 152/84 H 03/13/19 09:12 Pulse Ox 95 03/13/19 09:12 Height: 5 ft 6 in Weight: 78.925 kg ASA Class: 2 Mental Status: Alert & Oriented x3 Airway Class: Mallampati = 2 Dentition: Reports: Normal Dentition Thyro-Mental Finger Breadths: 3 Mouth Opening Finger Breadths: 3 ROM/Head Extension: Full Lungs: Clear to Auscultation, Normal Respiratory Effort Cardiovascular: Regular Rate, Regular Rhythm - Lab Values: Laboratory Last Values WBC 12.75 K/uL (4.0-11.0) H 03/13/19 09:15 RBC 5.07 M/uL (4.30-5.90) 03/13/19 09:15 Hgb 14.1 g/dL (12.0-16.0) 03/13/19 09:15 Hct 42.2 % (36.0-46.0) 03/13/19 09:15 MCV 83.2 fL (80.0-98.0) 03/13/19 09:15 MCH 27.8 pg (27.0-32.0) 03/13/19 09:15 MCHC 33.4 g/dL (31.0-37.0) 03/13/19 09:15 RDW Std Deviation 40.0 fl (28.0-62.0) 03/13/19 09:15 RDW Coeff of Chuck 13 % (11.0-15.0) 03/13/19 09:15 Plt Count 296 K/uL (150-400) 03/13/19 09:15 MPV 10.20 fL (7.40-12.00) 03/13/19 09:15 Neut % (Auto) 75.3 % (48.0-80.0) 03/13/19 09:15 Lymph % (Auto) 13.9 % (16.0-40.0) L 03/13/19 09:15 [place] % (Auto) 8.2 % (0.0-15.0) 03/13/19 09:15 Eos % (Auto) 2.4 % (0.0-7.0) 03/13/19 09:15 Baso % (Auto) 0.2 % (0.0-1.5) 03/13/19 09:15 Neut # (Auto) 9.6 K/uL (1.4-5.7) H 03/13/19 09:15 Lymph # (Auto) 1.8 K/uL (0.6-2.4) 03/13/19 09:15 [place] # (Auto) 1.1 K/uL (0.0-0.8) H 03/13/19 09:15 Eos # (Auto) 0.3 K/uL (0.0-0.7) 03/13/19 09:15 Baso # (Auto) 0.0 K/uL (0.0-0.1) 03/13/19 09:15 Nucleated RBC % 0.0 /100WBC 03/13/19 09:15 Nucleated RBCs # 0 K/uL 03/13/19 09:15 Sodium 139 mmol/L (136-145) 03/13/19 09:15 Potassium 4.2 mmol/L (3.5-5.1) 03/13/19 09:15 Chloride 104 mmol/L (98-107) 03/13/19 09:15 Carbon Dioxide 22.1 mmol/L (21.0-32.0) 03/13/19 09:15 BUN 12 mg/dL (7.0-18.0) 03/13/19 09:15 Creatinine 0.8 mg/dL (0.6-1.0) 03/13/19 09:15 Est Cr Clr Drug Dosing 96.26 mL/min 03/13/19 09:15 Estimated GFR (MDRD) > 60.0 ml/min 03/13/19 09:15 Glucose 111 mg/dL (74-106) H 03/13/19 09:15 Calcium 9.4 mg/dL (8.5-10.1) 03/13/19 09:15 Total Bilirubin 0.5 mg/dL (0.2-1.0) 03/13/19 09:15 AST 15 IU/L (15-37) 03/13/19 09:15 ALT 19 IU/L (14-63) 03/13/19 09:15 Alkaline Phosphatase 49 U/L (46-116) 03/13/19 09:15 Total Protein 8.1 g/dL (6.4-8.2) 03/13/19 09:15 Albumin 4.4 g/dL (3.4-5.0) 03/13/19 09:15 Globulin 3.7 g/dL (2.6-4.0) 03/13/19 09:15 Albumin/Globulin Ratio 1.2 (0.9-1.6) 03/13/19 09:15 Urine Color YELLOW 03/13/19 09:20 Urine Appearance CLEAR 03/13/19 09:20 Urine pH 6.0 (5.0-8.0) 03/13/19 09:20 Ur Specific [place] 1.020 (1.001-1.035) 03/13/19 09:20 Urine Protein NEGATIVE mg/dL (NEGATIVE) 03/13/19 09:20 Urine Glucose (UA) NEGATIVE mg/dL (NEGATIVE) 03/13/19 09:20 Urine Ketones NEGATIVE mg/dL (NEGATIVE) 03/13/19 09:20 Urine Occult Blood NEGATIVE (NEGATIVE) 03/13/19 09:20 Urine Nitrite NEGATIVE (NEGATIVE) 03/13/19 09:20 Urine Bilirubin NEGATIVE (NEGATIVE) 03/13/19 09:20 Urine Urobilinogen 0.2 EU/dL (<2.0) 03/13/19 09:20 Ur Leukocyte Esterase SMALL (NEGATIVE) H 03/13/19 09:20 Urine RBC 0-1 (0-2/HPF) 03/13/19 09:20 Urine WBC 4-5 (0-5/HPF) 03/13/19 09:20 Ur Epithelial Cells MODERATE (NONE-FEW) 03/13/19 09:20 Urine Bacteria 1+ (NEGATIVE) H 03/13/19 09:20 Urine HCG, Qual NEGATIVE (NEGATIVE) 03/13/19 09:20 - Allergies Allergies/Adverse Reactions: Allergies Allergy/AdvReac Type Severity Reaction Status Date / Time No Known Allergies Allergy Verified 03/13/19 09:11 - Acknowledgements Anesthesia Type Planned: General Anesthesia Pt an Appropriate Candidate for the Planned Anesthesia: Yes Alternatives and Risks of Anesthesia Discussed w Pt/Guardian: Yes Pt/Guardian Understands and Agrees with Anesthesia Plan: Yes PreAnesthesia Questionnaire HEENT History: Reports: None Cardiovascular History: Reports: None Respiratory History: Reports: Asthma Gastrointestinal History: Reports: None Genitourinary History: Reports: None 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: Musculoskeletal History: Reports: None Neurological History: Reports: None Psychiatric History: Reports: Anxiety, Depression Endocrine/Metabolic History: Reports: None Hematologic History: Reports: None Immunologic History: Reports: None Oncologic (Cancer) History: Reports: None Dermatologic History: Reports: None - Infectious Disease History Infectious Disease History: Reports: Chicken Pox - Past Surgical History HEENT Surgical History: Reports: Oral Surgery, Tonsillectomy, Other (See Below) - SUBSTANCE USE Smoking Status *Q: Never Smoker Second Hand Smoke Exposure: No Recreational Drug Use History: No - HOME MEDS Home Medications: Home Meds Albuterol [Ventolin HFA] 1 puff IN DAILY 09/06/14 [History] Montelukast [Singulair] 10 mg PO DAILY 09/06/14 [History] Fluticasone/Vilanterol [Breo Ellipta 100-25 MCG Inhalation Kit] 1 each IH ASDIRECTED 04/10/18 [History] Venlafaxine [Effexor] 25 mg PO BID 03/13/19 [History] - CURRENT (IN HOUSE) MEDS Current Meds: Current Medications Lactated Ringer's (Ringers, Lactated) 1,000 mls @ 125 mls/hr IV STAT JULIUS Last Admin: 03/13/19 10:17 Dose: 125 mls/hr Piperacillin Sod/Tazobactam (Sod 3.375 gm/ Sodium Chloride) 50 mls @ 100 mls/ hr IV ONETIME ONE Stop: 03/13/19 10:38 Last Admin: 03/13/19 10:17 Dose: 100 mls/hr Sodium Chloride (Saline Flush) 10 ml FLUSH ASDIRECTED PRN PRN Reason: Keep Vein Open Sodium Chloride (Saline Flush) 2.5 ml FLUSH ASDIRECTED PRN PRN Reason: Keep Vein Open Discontinued Medications Bupivacaine HCl (Marcaine 0.5%) Confirm Administered Dose 30 ml .ROUTE .STK-MED ONE Stop: 03/13/19 10:21 Fentanyl (Sublimaze) Confirm Administered Dose 250 mcg .ROUTE .STK-MED ONE Stop: 03/13/19 10:16 Sodium Chloride (Normal Saline) 1,000 mls @ 999 mls/hr IV .Bolus ONE Stop: 03/13/19 10:04 Last Admin: 03/13/19 09:20 Dose: 999 mls/hr Iopamidol (Isovue Multipack-370 (76%)) 90 ml IVPUSH ONETIME STA Stop: 03/13/19 10:03 Last Admin: 03/13/19 10:02 Dose: 90 ml Ketorolac Tromethamine (Toradol) 30 mg IVPUSH ONETIME ONE Stop: 03/13/19 09:05 Last Admin: 03/13/19 09:20 Dose: 30 mg Lidocaine (Xylocaine-Mpf 2%) Confirm Administered Dose 5 ml .ROUTE .STK-MED ONE Stop: 03/13/19 10:16 Midazolam HCl (Versed 1 Mg/Ml) Confirm Administered Dose 2 mg .ROUTE .STK-MED ONE Stop: 03/13/19 10:16 Ondansetron HCl (Zofran) Confirm Administered Dose 4 mg .ROUTE .STK-MED ONE Stop: 03/13/19 10:16 Propofol (Diprivan 20 Ml) Confirm Administered Dose 200 mg .ROUTE .STK-MED ONE Stop: 03/13/19 10:16 Rocuronium [place] (Zemuron) Confirm Administered Dose 100 mg .ROUTE .STK-MED ONE Stop: 03/13/19 10:16 Succinylcholine Chloride (Succinylcholine Chloride) Confirm Administered Dose 200 mg .ROUTE .STK-MED ONE Stop: 03/13/19 10:16
[2019-03-13] MEDS ORDERED: HYDROmorphone 2 MG/ML Syringe IVPUSH PRN (10:39)
[2019-03-13] MEDS ORDERED: diphenhydrAMINE 50 MG/ML SDV IVPUSH PRN (10:39)
--- NOTE | 2019-03-13 10:39 | PCM.HP ---
H&P History of Present Illness - General Date of Service: 03/13/19 Source of Information: Patient History Limitations: Reports: No Limitations - History of Present Illness Initial Comments - Free Text/Narative: Patient is a 28 year old female who presents to the ER with 12 hours of RLQ pain. It started last evening and was associated with nausea. She woke up this morning and the pain was more centered in the RLQ and associated with worsening nausea. She presented to the ER. She denies fevers, chills, vomiting. Her WBC was slightly elevated at 12.75K. A CT was performed that showed early appendicitis. RLQ Pain Score (Numeric/FACES): 6 - Related Data Allergies/Adverse Reactions: Allergies Allergy/AdvReac Type Severity Reaction Status Date / Time No Known Allergies Allergy Verified 03/13/19 09:11 Home Medications: Home Meds Albuterol [Ventolin HFA] 1 puff IN DAILY 09/06/14 [History] Montelukast [Singulair] 10 mg PO DAILY 09/06/14 [History] Fluticasone/Vilanterol [Breo Ellipta 100-25 MCG Inhalation Kit] 1 each IH ASDIRECTED 04/10/18 [History] Venlafaxine [Effexor] 25 mg PO BID 03/13/19 [History] Past Medical History HEENT History: Reports: None Cardiovascular History: Reports: None Respiratory History: Reports: Asthma Gastrointestinal History: Reports: None Genitourinary History: Reports: None [employer]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: Musculoskeletal History: Reports: None Neurological History: Reports: None Psychiatric History: Reports: Anxiety, Depression Endocrine/Metabolic History: Reports: None Hematologic History: Reports: None Immunologic History: Reports: None Oncologic (Cancer) History: Reports: None Dermatologic History: Reports: None - Infectious Disease History Infectious Disease History: Reports: Chicken Pox - Past Surgical History HEENT Surgical History: Reports: Oral Surgery, Tonsillectomy, Other (See Below) Social & Family History - Family History Family Medical History: Noncontributory - Tobacco Use Smoking Status *Q: Never Smoker Second Hand Smoke Exposure: No - Caffeine Use Caffeine Use: Reports: Soda - Recreational Drug Use Recreational Drug Use: No H&P Review of Systems - Review of Systems: Review Of Systems: ROS reveals no pertinent complaints other than HPI. Exam - Exam Exam: See Below - Vital Signs Vital Signs: Last Vital Signs Temp 36.0 C 03/13/19 09:12 Pulse 90 03/13/19 09:12 Resp 18 03/13/19 10:27 BP 152/84 H 03/13/19 09:12 Pulse Ox 95 03/13/19 10:27 Weight: 78.925 kg - Exam General: Alert, Oriented, 4 Neck: Supple, Trachea Midline, 2 Lungs: Clear to Auscultation, Normal Respiratory Effort Cardiovascular: Regular Rate, Regular Rhythm GI/Abdominal Exam: Soft, No Distention, No Mass, Tender (mild RLQ tenderness) Back Exam: Normal Inspection Extremities: Normal Inspection - Patient Data Lab Results Last 24 hrs: Laboratory Results - last 24 hr 03/13/19 03/13/19 03/13/19 Range/Units 09:15 09:15 09:20 WBC 12.75 H (4.0-11.0) K/uL RBC 5.07 (4.30-5.90) M/uL Hgb 14.1 (12.0-16.0) g/dL Hct 42.2 (36.0-46.0) % MCV 83.2 (80.0-98.0) fL MCH 27.8 (27.0-32.0) pg MCHC 33.4 (31.0-37.0) g/dL RDW Std Deviation 40.0 (28.0-62.0) fl RDW Coeff of Chuck 13 (11.0-15.0) % Plt Count 296 (150-400) K/uL MPV 10.20 (7.40-12.00) fL Neut % (Auto) 75.3 (48.0-80.0) % Lymph % (Auto) 13.9 L (16.0-40.0) % [place] % (Auto) 8.2 (0.0-15.0) % Eos % (Auto) 2.4 (0.0-7.0) % Baso % (Auto) 0.2 (0.0-1.5) % Neut # (Auto) 9.6 H (1.4-5.7) K/uL Lymph # (Auto) 1.8 (0.6-2.4) K/uL [place] # (Auto) 1.1 H (0.0-0.8) K/uL Eos # (Auto) 0.3 (0.0-0.7) K/uL Baso # (Auto) 0.0 (0.0-0.1) K/uL Nucleated RBC % 0.0 /100WBC Nucleated RBCs # 0 K/uL Sodium 139 (136-145) mmol/L Potassium 4.2 (3.5-5.1) mmol/L Chloride 104 (98-107) mmol/L Carbon Dioxide 22.1 (21.0-32.0) mmol/L BUN 12 (7.0-18.0) mg/dL Creatinine 0.8 (0.6-1.0) mg/dL Est Cr Clr Drug Dosing 96.26 mL/min Estimated GFR (MDRD) > 60.0 ml/min Glucose 111 H (74-106) mg/dL Calcium 9.4 (8.5-10.1) mg/dL Total Bilirubin 0.5 (0.2-1.0) mg/dL AST 15 (15-37) IU/L ALT 19 (14-63) IU/L Alkaline Phosphatase 49 (46-116) U/L Total Protein 8.1 (6.4-8.2) g/dL Albumin 4.4 (3.4-5.0) g/dL Globulin 3.7 (2.6-4.0) g/dL Albumin/Globulin Ratio 1.2 (0.9-1.6) Urine Color YELLOW Urine Appearance CLEAR Urine pH 6.0 (5.0-8.0) Ur Specific [place] 1.020 (1.001-1.035) Urine Protein NEGATIVE (NEGATIVE) mg/dL Urine Glucose (UA) NEGATIVE (NEGATIVE) mg/dL Urine Ketones NEGATIVE (NEGATIVE) mg/dL Urine Occult Blood NEGATIVE (NEGATIVE) Urine Nitrite NEGATIVE (NEGATIVE) Urine Bilirubin NEGATIVE (NEGATIVE) Urine Urobilinogen 0.2 (<2.0) EU/dL Ur Leukocyte Esterase SMALL H (NEGATIVE) Urine RBC 0-1 (0-2/HPF) Urine WBC 4-5 (0-5/HPF) Ur Epithelial Cells MODERATE (NONE-FEW) Urine Bacteria 1+ H (NEGATIVE) Urine HCG, Qual (NEGATIVE) 03/13/19 Range/Units 09:20 WBC (4.0-11.0) K/uL RBC (4.30-5.90) M/uL Hgb (12.0-16.0) g/dL Hct (36.0-46.0) % MCV (80.0-98.0) fL MCH (27.0-32.0) pg MCHC (31.0-37.0) g/dL RDW Std Deviation (28.0-62.0) fl RDW Coeff of Chuck (11.0-15.0) % Plt Count (150-400) K/uL MPV (7.40-12.00) fL Neut % (Auto) (48.0-80.0) % Lymph % (Auto) (16.0-40.0) % [place] % (Auto) (0.0-15.0) % Eos % (Auto) (0.0-7.0) % Baso % (Auto) (0.0-1.5) % Neut # (Auto) (1.4-5.7) K/uL Lymph # (Auto) (0.6-2.4) K/uL [place] # (Auto) (0.0-0.8) K/uL Eos # (Auto) (0.0-0.7) K/uL Baso # (Auto) (0.0-0.1) K/uL Nucleated RBC % /100WBC Nucleated RBCs # K/uL Sodium (136-145) mmol/L Potassium (3.5-5.1) mmol/L Chloride (98-107) mmol/L Carbon Dioxide (21.0-32.0) mmol/L BUN (7.0-18.0) mg/dL Creatinine (0.6-1.0) mg/dL Est Cr Clr Drug Dosing mL/min Estimated GFR (MDRD) ml/min Glucose (74-106) mg/dL Calcium (8.5-10.1) mg/dL Total Bilirubin (0.2-1.0) mg/dL AST (15-37) IU/L ALT (14-63) IU/L Alkaline Phosphatase (46-116) U/L Total Protein (6.4-8.2) g/dL Albumin (3.4-5.0) g/dL Globulin (2.6-4.0) g/dL Albumin/Globulin Ratio (0.9-1.6) Urine Color Urine Appearance Urine pH (5.0-8.0) Ur Specific [place] (1.001-1.035) Urine Protein (NEGATIVE) mg/dL Urine Glucose (UA) (NEGATIVE) mg/dL Urine Ketones (NEGATIVE) mg/dL Urine Occult Blood (NEGATIVE) Urine Nitrite (NEGATIVE) Urine Bilirubin (NEGATIVE) Urine Urobilinogen (<2.0) EU/dL Ur Leukocyte Esterase (NEGATIVE) Urine RBC (0-2/HPF) Urine WBC (0-5/HPF) Ur Epithelial Cells (NONE-FEW) Urine Bacteria (NEGATIVE) Urine HCG, Qual NEGATIVE (NEGATIVE) Result Diagrams: 03/13/19 09:15 03/13/19 09:15 - Problem List (1) Acute appendicitis SNOMED Code(s): 39176508 ICD Code: K35.80 - UNSPECIFIED ACUTE APPENDICITIS Status: Acute Current Visit: Yes Qualifiers: Acute appendicitis type: unspecified acute appendicitis type Qualified Code (s): K35.80 - Unspecified acute appendicitis Problem List Initiated/Reviewed/Updated: Yes Orders Last 24hrs: Active Orders 24 hr Category Date Time Status Lactated Ringers [Ringers, Lactated] 1,000 ml Med 03/13/19 10:15 Active IV STAT Piperacillin/Tazobactam [Piperacil-Tazobact] 3.375 gm Med 03/13/19 10:09 Active Sodium Chloride 0.9% [Normal Saline] 50 ml IV ONETIME Sodium Chloride 0.9% [Saline Flush] Med 03/13/19 09:04 Active 10 ml FLUSH ASDIRECTED PRN Sodium Chloride 0.9% [Saline Flush] Med 03/13/19 09:04 Active 2.5 ml FLUSH ASDIRECTED PRN Saline Lock Insert [OM.PC] Stat Oth 03/13/19 09:03 Ordered Medication Orders Lactated Ringer's (Ringers, Lactated) 1,000 mls @ 125 mls/hr IV STAT [facility] Last Admin: 03/13/19 10:17 Dose: 125 mls/hr Piperacillin Sod/Tazobactam (Sod 3.375 gm/ Sodium Chloride) 50 mls @ 100 mls/ hr IV ONETIME ONE Stop: 03/13/19 10:38 Last Admin: 03/13/19 10:17 Dose: 100 mls/hr Sodium Chloride (Saline Flush) 10 ml FLUSH ASDIRECTED PRN PRN Reason: Keep Vein Open Sodium Chloride (Saline Flush) 2.5 ml FLUSH ASDIRECTED PRN PRN Reason: Keep Vein Open Assessment/Plan Comment:: The patient and I discussed the pathophysiology of acute appendicitis. The treatment is appendectomy. I will attempt this laparoscopically but if I am unable to do so we will convert to open. I explained the expected perioperative course and the risks including bleeding, infection, or damage to surrounding structures. She verbalized understanding and wishes to proceed. She will get one dose of zosyn and IVF in the ER.
[2019-03-13] MEDS ORDERED: ePHEDrine 50 MG/ML SDV ONE (11:01)
[2019-03-13] MEDS ORDERED: Neostigmine Methylsulfate 1 MG/ML 5 ML Syringe ONE (11:20)
[2019-03-13] MEDS ORDERED: Glycopyrrolate 0.2 MG/ML SDV ONE (11:20)
[2019-03-13] MEDS ORDERED: HYDROmorphone 2 MG/ML Syringe ONE (11:24)
[2019-03-13] MEDS ORDERED: Naloxone 0.4 MG/ML Syringe IVPUSH PRN (11:30)
[2019-03-13] MEDS ORDERED: Albuterol 0.083% 2.5 MG/3 ML Neb Soln NEB PRN (11:30)
[2019-03-13] MEDS ORDERED: fentaNYL 100 MCG/2 ML SDV IVPUSH PRN (11:30)
[2019-03-13] MEDS ORDERED: EPINEPHrine 1:10,000 1 MG/10 ML Syringe IVPUSH PRN (11:30)
[2019-03-13] MEDS ORDERED: 50% Dextrose in Water 50 ML Syringe IVPUSH PRN (11:30)
[2019-03-13] MEDS ORDERED: Atropine 0.1 MG/ML 10 ML Syringe IVPUSH PRN ×2 (11:30)
--- NOTE | 2019-03-13 11:37 | PCM.OPNOTE ---
- General Post-Op/Procedure Note Date of Surgery/Procedure: 03/13/19 Operative Procedure(s): Laparoscopic appendectomy Findings: Grossly inflamed and enlarged appendix. No signs of perforation. Pre Op Diagnosis: acute appendicitis Post-Op Diagnosis: same Anesthesia Technique: General ET Tube Primary Surgeon: Yanni Barnes Pathology: appendix Fluid Replacement, Intraop: 1,200 Output, Urine Amount: 75 EBL in mLs: 5 Condition: Stable
--- NOTE | 2019-03-13 12:10 | PCM.POSTAN ---
POST ANESTHESIA ASSESSMENT - MENTAL STATUS Mental Status: Alert, Oriented - RESPIRATORY Respiratory Status: Respiratory Rate WNL, Airway Patent, O2 Saturation Stable - CARDIOVASCULAR CV Status: Pulse Rate WNL, Blood Pressure Stable - GASTROINTESTINAL GI Status: No Symptoms - POST OP HYDRATION Hydration Status: Adequate & Stable
[2019-03-13] MEDS: Acetaminophen/HYDROcodone 325-5 MG Tab PO PRN ×2 (14:06→18:22)
--- NOTE | 2019-03-13 16:17 | PCM.SURGPN ---
- General Info Date of Service: 03/13/19 Functional Status: Reports: Pain Controlled, Tolerating Diet, Ambulating, Urinating - Review of Systems General: Reports: No Symptoms HEENT: Reports: No Symptoms Pulmonary: Reports: No Symptoms Cardiovascular: Reports: No Symptoms Gastrointestinal: Reports: No Symptoms Genitourinary: Reports: No Symptoms - Patient Data Vitals - Most Recent: Last Vital Signs Temp 36.0 C 03/13/19 15:39 Pulse 73 03/13/19 15:39 Resp 20 03/13/19 15:39 BP 110/59 L 03/13/19 15:39 Pulse Ox 96 03/13/19 15:39 Weight - Most Recent: 78.925 kg I&O - Last 24 Hours: Intake & Output 03/13/19 03/13/19 03/13/19 06:59 14:59 22:59 Intake Total 2500 Output Total 225 Balance 2275 Lab Results Last 24 Hrs: Laboratory Results - last 24 hr 03/13/19 03/13/19 03/13/19 Range/Units 09:15 09:15 09:20 WBC 12.75 H (4.0-11.0) K/uL RBC 5.07 (4.30-5.90) M/uL Hgb 14.1 (12.0-16.0) g/dL Hct 42.2 (36.0-46.0) % MCV 83.2 (80.0-98.0) fL MCH 27.8 (27.0-32.0) pg MCHC 33.4 (31.0-37.0) g/dL RDW Std Deviation 40.0 (28.0-62.0) fl RDW Coeff of Chuck 13 (11.0-15.0) % Plt Count 296 (150-400) K/uL MPV 10.20 (7.40-12.00) fL Neut % (Auto) 75.3 (48.0-80.0) % Lymph % (Auto) 13.9 L (16.0-40.0) % [place] % (Auto) 8.2 (0.0-15.0) % Eos % (Auto) 2.4 (0.0-7.0) % Baso % (Auto) 0.2 (0.0-1.5) % Neut # (Auto) 9.6 H (1.4-5.7) K/uL Lymph # (Auto) 1.8 (0.6-2.4) K/uL [place] # (Auto) 1.1 H (0.0-0.8) K/uL Eos # (Auto) 0.3 (0.0-0.7) K/uL Baso # (Auto) 0.0 (0.0-0.1) K/uL Nucleated RBC % 0.0 /100WBC Nucleated RBCs # 0 K/uL Sodium 139 (136-145) mmol/L Potassium 4.2 (3.5-5.1) mmol/L Chloride 104 (98-107) mmol/L Carbon Dioxide 22.1 (21.0-32.0) mmol/L BUN 12 (7.0-18.0) mg/dL Creatinine 0.8 (0.6-1.0) mg/dL Est Cr Clr Drug Dosing 96.26 mL/min Estimated GFR (MDRD) > 60.0 ml/min Glucose 111 H (74-106) mg/dL Calcium 9.4 (8.5-10.1) mg/dL Total Bilirubin 0.5 (0.2-1.0) mg/dL AST 15 (15-37) IU/L ALT 19 (14-63) IU/L Alkaline Phosphatase 49 (46-116) U/L Total Protein 8.1 (6.4-8.2) g/dL Albumin 4.4 (3.4-5.0) g/dL Globulin 3.7 (2.6-4.0) g/dL Albumin/Globulin Ratio 1.2 (0.9-1.6) Urine Color YELLOW Urine Appearance CLEAR Urine pH 6.0 (5.0-8.0) Ur Specific [place] 1.020 (1.001-1.035) Urine Protein NEGATIVE (NEGATIVE) mg/dL Urine Glucose (UA) NEGATIVE (NEGATIVE) mg/dL Urine Ketones NEGATIVE (NEGATIVE) mg/dL Urine Occult Blood NEGATIVE (NEGATIVE) Urine Nitrite NEGATIVE (NEGATIVE) Urine Bilirubin NEGATIVE (NEGATIVE) Urine Urobilinogen 0.2 (<2.0) EU/dL Ur Leukocyte Esterase SMALL H (NEGATIVE) Urine RBC 0-1 (0-2/HPF) Urine WBC 4-5 (0-5/HPF) Ur Epithelial Cells MODERATE (NONE-FEW) Urine Bacteria 1+ H (NEGATIVE) Urine HCG, Qual (NEGATIVE) 03/13/19 Range/Units 09:20 WBC (4.0-11.0) K/uL RBC (4.30-5.90) M/uL Hgb (12.0-16.0) g/dL Hct (36.0-46.0) % MCV (80.0-98.0) fL MCH (27.0-32.0) pg MCHC (31.0-37.0) g/dL RDW Std Deviation (28.0-62.0) fl RDW Coeff of Chuck (11.0-15.0) % Plt Count (150-400) K/uL MPV (7.40-12.00) fL Neut % (Auto) (48.0-80.0) % Lymph % (Auto) (16.0-40.0) % [place] % (Auto) (0.0-15.0) % Eos % (Auto) (0.0-7.0) % Baso % (Auto) (0.0-1.5) % Neut # (Auto) (1.4-5.7) K/uL Lymph # (Auto) (0.6-2.4) K/uL [place] # (Auto) (0.0-0.8) K/uL Eos # (Auto) (0.0-0.7) K/uL Baso # (Auto) (0.0-0.1) K/uL Nucleated RBC % /100WBC Nucleated RBCs # K/uL Sodium (136-145) mmol/L Potassium (3.5-5.1) mmol/L Chloride (98-107) mmol/L Carbon Dioxide (21.0-32.0) mmol/L BUN (7.0-18.0) mg/dL Creatinine (0.6-1.0) mg/dL Est Cr Clr Drug Dosing mL/min Estimated GFR (MDRD) ml/min Glucose (74-106) mg/dL Calcium (8.5-10.1) mg/dL Total Bilirubin (0.2-1.0) mg/dL AST (15-37) IU/L ALT (14-63) IU/L Alkaline Phosphatase (46-116) U/L Total Protein (6.4-8.2) g/dL Albumin (3.4-5.0) g/dL Globulin (2.6-4.0) g/dL Albumin/Globulin Ratio (0.9-1.6) Urine Color Urine Appearance Urine pH (5.0-8.0) Ur Specific [place] (1.001-1.035) Urine Protein (NEGATIVE) mg/dL Urine Glucose (UA) (NEGATIVE) mg/dL Urine Ketones (NEGATIVE) mg/dL Urine Occult Blood (NEGATIVE) Urine Nitrite (NEGATIVE) Urine Bilirubin (NEGATIVE) Urine Urobilinogen (<2.0) EU/dL Ur Leukocyte Esterase (NEGATIVE) Urine RBC (0-2/HPF) Urine WBC (0-5/HPF) Ur Epithelial Cells (NONE-FEW) Urine Bacteria (NEGATIVE) Urine HCG, Qual NEGATIVE (NEGATIVE) Med Orders - Current: Current Medications Hydrocodone Bitart/Acetaminophen ([place] 325-5 Mg) 2 tab PO Q4H PRN PRN Reason: Pain (moderate 4-6) Last Admin: 03/13/19 14:06 Dose: 2 tab Hydromorphone HCl (Dilaudid) 0.5 mg IVPUSH Q1H PRN PRN Reason: Pain (severe 7-10) Lactated Ringer's (Ringers, Lactated) 1,000 mls @ 125 mls/hr IV STAT [facility] Last Admin: 03/13/19 15:37 Dose: 125 mls/hr Sodium Chloride (Saline Flush) 10 ml FLUSH ASDIRECTED PRN PRN Reason: Keep Vein Open Sodium Chloride (Saline Flush) 2.5 ml FLUSH ASDIRECTED PRN PRN Reason: Keep Vein Open Discontinued Medications Albuterol (Proventil Neb Soln) 2.5 mg NEB ONETIME PRN PRN Reason: Wheezing Atropine Sulfate (Atropine 0.1 Mg/Ml) 0.5 mg IVPUSH ASDIRECTED PRN PRN Reason: Hypo-perfusion Atropine Sulfate (Atropine 0.1 Mg/Ml) 1 mg IVPUSH ASDIRECTED PRN PRN Reason: Hypo-Perfusion Bupivacaine HCl (Marcaine 0.5%) Confirm Administered Dose 30 ml .ROUTE .STK-MED ONE Stop: 03/13/19 10:21 Bupivacaine HCl (Marcaine 0.5%) Confirm Administered Dose 30 ml .ROUTE .STK-MED ONE Stop: 03/13/19 10:28 Dextrose/Water (Dextrose 50% In Water) 50 ml IVPUSH ASDIRECTED PRN PRN Reason: Hypoglycemia Diphenhydramine HCl (Benadryl) 25 mg IVPUSH Q4H PRN PRN Reason: Itching Ephedrine Sulfate (Ephedrine Sulfate) Confirm Administered Dose 50 mg .ROUTE .STK-MED ONE Stop: 03/13/19 11:02 Epinephrine HCl (Epinephrine 1:10,000) 1 mg IVPUSH ASDIRECTED PRN PRN Reason: ACLS Guidelines Fentanyl (Sublimaze) Confirm Administered Dose 250 mcg .ROUTE .STK-MED ONE Stop: 03/13/19 10:16 Fentanyl (Sublimaze) 50 - 100 mcg IVPUSH Q5M PRN PRN Reason: Pain Glycopyrrolate (Robinul) Confirm Administered Dose 0.4 mg .ROUTE .STK-MED ONE Stop: 03/13/19 11:21 Hydromorphone HCl (Dilaudid) Confirm Administered Dose 2 mg .ROUTE .STK-MED ONE Stop: 03/13/19 11:25 Sodium Chloride (Normal Saline) 1,000 mls @ 999 mls/hr IV .Bolus ONE Stop: 03/13/19 10:04 Last Admin: 03/13/19 09:20 Dose: 999 mls/hr Piperacillin Sod/Tazobactam (Sod 3.375 gm/ Sodium Chloride) 50 mls @ 100 mls/ hr IV ONETIME ONE Stop: 03/13/19 10:38 Last Admin: 03/13/19 10:17 Dose: 100 mls/hr Iopamidol (Isovue Multipack-370 (76%)) 90 ml IVPUSH ONETIME STA Stop: 03/13/19 10:03 Last Admin: 03/13/19 10:02 Dose: 90 ml Ketorolac Tromethamine (Toradol) 30 mg IVPUSH ONETIME ONE Stop: 03/13/19 09:05 Last Admin: 03/13/19 09:20 Dose: 30 mg Lidocaine (Xylocaine-Mpf 2%) Confirm Administered Dose 5 ml .ROUTE .STK-MED ONE Stop: 03/13/19 10:16 Midazolam HCl (Versed 1 Mg/Ml) Confirm Administered Dose 2 mg .ROUTE .STK-MED ONE Stop: 03/13/19 10:16 Naloxone HCl (Narcan) 0.1 mg IVPUSH ASDIRECTED PRN PRN Reason: Respiratory Depression Neostigmine Methylsulfate (Neostigmine) Confirm Administered Dose 5 mg .ROUTE .STK-MED ONE Stop: 03/13/19 11:21 Ondansetron HCl (Zofran) Confirm Administered Dose 4 mg .ROUTE .STK-MED ONE Stop: 03/13/19 10:16 Propofol (Diprivan 20 Ml) Confirm Administered Dose 200 mg .ROUTE .STK-MED ONE Stop: 03/13/19 10:16 Rocuronium [place] (Zemuron) Confirm Administered Dose 100 mg .ROUTE .STK-MED ONE Stop: 03/13/19 10:16 Succinylcholine Chloride (Succinylcholine Chloride) Confirm Administered Dose 200 mg .ROUTE .STK-MED ONE Stop: 03/13/19 10:16 - Exam Wound/Incisions: Healing Well, Dressing Dry and Intact, Drainage (scant) General: Alert, Oriented, Cooperative HEENT: Pupils Equal Lungs: Normal Respiratory Effort Cardiovascular: Regular Rate GI/Abdominal Exam: Soft, Non-Tender, No Distention, No Mass Skin: Warm, Dry, Intact - Problem List & Annotations (1) Acute appendicitis SNOMED Code(s): 68997992 Code(s): K35.80 - UNSPECIFIED ACUTE APPENDICITIS Status: Acute Current Visit: Yes Qualifiers: Acute appendicitis type: unspecified acute appendicitis type Qualified Code (s): K35.80 - Unspecified acute appendicitis - Problem List Review Problem List Initiated/Reviewed/Updated: Yes - My Orders Last 24 Hours: Active Orders 24 hr Category Date Time Status Patient Status [ADT] Routine ADT 03/13/19 10:39 Active Notify Provider Vital Signs [RC] ASDIRECTED Care 03/13/19 11:30 Active Oxygen Therapy [RC] PRN Care 03/13/19 11:30 Active RT Aerosol Therapy [RC] ASDIRECTED Care 03/13/19 11:30 Active RT Incentive Spirometry [RC] Q1HWA Care 03/13/19 10:39 Active Ready for Discharge [RC] PER UNIT ROUTINE Care 03/13/19 16:10 Ordered Vital Signs [RC] Q4H Care 03/13/19 10:39 Active Regular Diet [DIET] Diet 03/13/19 Dinner Active Acetaminophen/HYDROcodone [[place] 325-5 MG] Med 03/13/19 10:39 Active 2 tab PO Q4H PRN HYDROmorphone [Dilaudid] Med 03/13/19 10:39 Active 0.5 mg IVPUSH Q1H PRN Lactated Ringers [Ringers, Lactated] 1,000 ml Med 03/13/19 10:15 Active IV STAT Sodium Chloride 0.9% [Saline Flush] Med 03/13/19 09:04 Active 10 ml FLUSH ASDIRECTED PRN Sodium Chloride 0.9% [Saline Flush] Med 03/13/19 09:04 Active 2.5 ml FLUSH ASDIRECTED PRN Saline Lock Insert [OM.PC] Stat Oth 03/13/19 09:03 Ordered Resuscitation Status Routine Resus Stat 03/13/19 10:39 Ordered Medication Orders Hydrocodone Bitart/Acetaminophen ([place] 325-5 Mg) 2 tab PO Q4H PRN PRN Reason: Pain (moderate 4-6) Last Admin: 03/13/19 14:06 Dose: 2 tab Hydromorphone HCl (Dilaudid) 0.5 mg IVPUSH Q1H PRN PRN Reason: Pain (severe 7-10) Lactated Ringer's (Ringers, Lactated) 1,000 mls @ 125 mls/hr IV STAT [facility] Last Admin: 03/13/19 15:37 Dose: 125 mls/hr Infusion: 03/13/19 15:37 Dose: 125 mls/hr Admin: 03/13/19 10:17 Dose: 125 mls/hr Sodium Chloride (Saline Flush) 10 ml FLUSH ASDIRECTED PRN PRN Reason: Keep Vein Open Sodium Chloride (Saline Flush) 2.5 ml FLUSH ASDIRECTED PRN PRN Reason: Keep Vein Open - Plan Plan (Free Text/Narrative):: Patient is a 28 year old female who underwent an uncomplicated laparoscopic appendectomy. Her appendix was not perforated. She has had no issues in the post operative period. Her vitals have been stable. She is tolerating a regular diet. She is ambulating without difficulty. She had a small amount of bacteria in her urine and positive leukocyte esterase on presentation, but has had no symptoms at all of a UTI. Will not send home on antibiotics. I told her the symptoms to watch for and told her to call right away if she has any. She is cleared for discharge.
[2019-03-13 17:47] VITALS: BP 100/57
--- NOTE | 2019-03-13 18:03 | OR ---
SURGEON: YANNI BARNES MD DATE OF PROCEDURE: 03/13/2019 PREOPERATIVE DIAGNOSIS: Appendicitis. POSTOPERATIVE DIAGNOSIS: Appendicitis. PROCEDURE PERFORMED: Laparoscopic appendectomy. PRIMARY SURGEON: Yanni Barnes MD. ANESTHESIA: General endotracheal anesthesia. FLUIDS: 1200 mL of crystalloid. ESTIMATED BLOOD LOSS: 5 mL. URINE OUTPUT: 75 mL. FINDINGS: Grossly inflamed and enlarged appendix. No evidence of perforation. COMPLICATIONS: None. INDICATIONS: The patient is a 28-year-old female, who presented with 12 hours of right lower quadrant pain. Workup in the emergency room revealed leukocytosis and CT scan of the abdomen showed an early appendicitis. The patient and I discussed the diagnosis as well as the need for an appendectomy. I explained both the laparoscopic and open approaches. Should I be unable to perform it safely laparoscopically, I would convert to open. The patient and I discussed the expected perioperative course as well as the risks including bleeding, infection, or damage to surrounding structures. The patient verbalized understanding and wishes to proceed. PROCEDURE IN DETAIL: The patient was brought into the OR and placed on the OR table in supine position. A time-out was completed verifying the patient's name, age, date of , allergies, and procedure to be performed. General endotracheal anesthesia was induced. A Bui catheter was placed and the left arm was tucked to the patient's side. The abdomen was prepped and draped in usual standard fashion. I anesthetized an area 2 fingerbreadths below the left subcostal margin in the midclavicular line with 0.5% Marcaine plain. A 1 cm incision was made using an 11 blade. A 5 mm optical trocar was used to gain entry into the abdomen in the left upper quadrant under direct visualization. All layers of the abdominal wall were visualized upon entry. The abdomen was insufflated and a 5 mm 30-degree scope was inserted into the abdominal cavity. I inspected the area underneath my initial trocar placement. No damage to surrounding structures was noted. The patient was placed into Trendelenburg position and airplaned slightly to the left. A 5 mm trocar was placed under direct visualization, just left and lateral to the umbilicus. A 12 mm trocar was placed under direct visualization in the left lower quadrant. I then turned my attention to the right lower quadrant. I identified the ascending colon and followed the tenia down to the cecum. At the base of the cecum, identified the appendix. The tip of the appendix was grasped and elevated. Using a Harmonic scalpel, I took down the appendiceal mesentery from distal to proximal. Once I had cleared away the appendiceal mesentery, I inspected the base of the appendix. It did not appear to be inflamed or enlarged. The appendix itself was enlarged and acutely inflamed, but there was no evidence of perforation. An endoscopic stapling device was brought into the field. I fired 45 mm blue load of delfina across the base of the appendix and transected it. The appendix was placed in an Endo Catch bag and removed through the left lower quadrant site. I then inspected my operative field. It was hemostatic and there was no fluid around the base of the appendix or in the pelvis, so I did not perform any irrigation. The 12 mm trocar site was then closed with interrupted 0 Vicryl suture using a Bart-Justin device. The 5 mm trocars were removed under direct visualization and the abdomen allowed to desufflate. I closed the left lower quadrant port site with interrupted 3-0 Vicryl sutures in the subcutaneous fat and the skin was closed with a running 4-0 Monocryl stitch. The 5 mm trocar sites were closed with interrupted 4-0 Monocryl sutures. Steri-Strips and sterile dressings were applied. The patient tolerated the procedure well and was taken to the PACU in stable condition. ASIF EDDY /[id number]
== END 2019-03-13 21:10 | disposition home or self-care (01) ==
LOC: MW.ED 08:58 → MW.SDS 10:08 → MW.MS 12:24 → MW.SDS 21:10
PROVIDERS: ATTEND Surgery
DX: K35.80 Unspecified acute appendicitis (principal); D72.829 Elevated white blood cell count, unspecified; J45.909 Unspecified asthma, uncomplicated; F32.9 Major depressive disorder, single episode, unspecified; Z79.51 Long term (current) use of inhaled steroids; Z79.52 Long term (current) use of systemic steroids
CPT/HCPCS: 36415; 44970; 74177; 80053; 81001; 81025; 85025; 88304; 96361; 96365; 96375; 99285; A9270; J0330; J1170; J1885; J2001; J2250; J2405; J2543; J2704; J3010; J3490; J7040; J7050; J7120; Q9967; 00840; 99284

== ENCOUNTER 2022-04-24 20:28 | Emergency (ER) | payer BC ==
[2022-04-24] MEDS ORDERED: Sodium Chloride 0.9% 1,000 ML IV ONE (20:49)
[2022-04-24] MEDS ORDERED: Ondansetron 4 MG/2 ML SDV IVPUSH ONE (20:53)
[2022-04-24] MEDS ORDERED: Morphine 4 MG/ML VIAL IVPUSH ONE (20:53)
[2022-04-24] MEDS ORDERED: cefTRIAXone 1 GM in Sodium Chloride 0.9% 50 ML IV ONE (21:59)
[2022-04-24 22:05] LABS: BLOOD UREA NITROGEN,BUN 8 mg/dL (7.0-18.0); CARBON DIOXIDE,CO2 21.4 mmol/L (21.0-32.0); CHLORIDE,CL 106 mmol/L (98-107); GLUCOSE RANDOM 114 mg/dL (74-106); SODIUM,NA 140 mmol/L (136-145)
[2022-04-24 22:07] LABS: ESTIMATED GFR 76 mL/min (>60)
[2022-04-25 00:58] VITALS: BP 124/60; PULSE 70
== END 2022-04-25 01:19 | disposition home or self-care (01) ==
LOC: MW.ED 20:28
DX: N93.8 Other specified abnormal uterine and vaginal bleeding (principal)
CPT/HCPCS: 36415; 76815; 80053; 81001; 84702; 85025; 87086; 96361; 96365; 96375; 99284; J0696; J2270; J2405; J7030

== ENCOUNTER 2024-03-01 14:54 | Inpatient (IN) | payer BC ==
[2024-03-01] MEDS ORDERED: Lidocaine 1% 50 ML MDV INJECT PRN (14:59)
[2024-03-01] MEDS ORDERED: Sodium Chloride 0.9% 20 ML SDV IV PRN (14:59)
[2024-03-01] MEDS ORDERED: Water For Irrigation,Sterile 1,000 ML Container IRR PRN (14:59)
[2024-03-01] MEDS ORDERED: Sodium Chloride 0.9% 2.5 ML Syringe FLUSH PRN (14:59)
[2024-03-01] MEDS ORDERED: Tranexamic Acid IN NACL,ISO-OS 1,000 MG in Premix Bag 1 BAG IV PRN (14:59)
[2024-03-01] MEDS ORDERED: Methylergonovine 0.2 MG/1 ML Amp IM PRN (14:59)
[2024-03-01] MEDS ORDERED: Terbutaline 1 MG/ML SDV SUBCUT PRN (14:59)
[2024-03-01] MEDS ORDERED: Butorphanol 2 MG/ML SDV IVPUSH PRN (14:59)
[2024-03-01] MEDS ORDERED: Carboprost Tromethamine 250 MCG/1 mL Vial IM PRN (14:59)
[2024-03-01] MEDS ORDERED: Misoprostol 200 MCG Tab PO PRN (14:59)
[2024-03-01] MEDS ORDERED: Sodium Chloride 0.9% 10 ML Syringe FLUSH PRN (14:59)
[2024-03-01] MEDS ORDERED: Oxytocin/0.9 % Sodium Chloride 30 UNIT/500 ML BAG IV SCH (15:00)
[2024-03-01] MEDS: Lactated Ringers 1,000 ML IV SCH (15:46)
[2024-03-01 15:47] LABS: HEMATOCRIT 35.1 % (37.0-47.0); HEMOGLOBIN 11.8 g/dL (12.0-16.0); MEAN CORPUSCULAR HEMOGLOBIN 27.4 pg (28.0-32.0); MEAN CORPUSCULAR HGB CONC 33.6 g/dL (32.0-36.0); MEAN CORPUSCULAR VOLUME 81.4 fL (83.0-99.0); MEAN PLATELET VOLUME 10.8 fL (9.4-12.3); PLATELET COUNT,PLT 237 K/uL (150-400); RED BLOOD CELL COUNT 4.31 M/uL (4.10-5.30); WHITE BLOOD CELL COUNT,WBC 10.69 K/uL (3.9-11.3)
[2024-03-01] MEDS: Ampicillin 2 GM in Sodium Chloride 0.9% 100 ML IV ONE (15:48)
[2024-03-01 16:10] LABS: A/G RATIO 0.7 (0.9-1.6); ALANINE AMINOTRANSFERASE,ALT 24 IU/L (14-63); ALBUMIN 2.7 g/dL (3.4-5.0); ALKALINE PHOSPHATASE 125 U/L (46-116); ASPARTATE AMNIOTRANSFERASE,AST 28 IU/L (15-37); BILIRUBIN TOTAL 0.3 mg/dL (0.2-1.0); BLOOD UREA NITROGEN,BUN 7 mg/dL (7.0-18.0); CALCIUM 8.9 mg/dL (8.5-10.1); CARBON DIOXIDE,CO2 22.7 mmol/L (21.0-32.0); CHLORIDE,CL 104 mmol/L (98-107); CREATININE 0.6 mg/dL (0.6-1.0); GLUCOSE RANDOM 84 mg/dL (74-106); POTASSIUM,K 4.1 mmol/L (3.5-5.1); PROTEIN TOTAL,TP 6.5 g/dL (6.4-8.2); SODIUM,NA 136 mmol/L (136-145)
[2024-03-01 16:11] LABS: ESTIMATED GFR 120 mL/min (>60)
[2024-03-01] MEDS ORDERED: Phenylephrine HCl In 0.9% NaCl 1 MG/10 ML Syringe IVPUSH PRN (16:36)
[2024-03-01] MEDS ORDERED: ePHEDrine 50 MG/ML SDV IVPUSH PRN ×2 (16:36)
[2024-03-01] MEDS: Misoprostol 25 MCG (1/4 of 100 MCG) Tab VAG ONE ×2 (17:48→22:00)
[2024-03-01] MEDS: Ampicillin 1 GM in Sodium Chloride 0.9% 50 ML IV SCH (19:44)
[2024-03-01] MEDS: Acetaminophen 500 MG Tab PO ONE (21:29)
[2024-03-02] MEDS: Oxytocin/0.9 % Sodium Chloride 30 UNIT/500 ML BAG IV SCH (02:02)
[2024-03-02] MEDS: Ropivacaine HCl/PF 400 MG in Premix Bag 1 BAG EPIDUR SCH (03:29)
[2024-03-02] MEDS ORDERED: dexmedeTOMIDine HCl 200 MCG/2 ML SDV ONE (03:31)
[2024-03-02] MEDS: Levothyroxine 25 MCG Tab PO SCH (07:54)
[2024-03-02] MEDS ORDERED: fentaNYL 100 MCG/2 ML SDV ONE (11:03)
[2024-03-02] MEDS ORDERED: Bupivacaine 0.5% 30 ML SDV ONE (11:04)
[2024-03-02] MEDS: Ondansetron 4 MG/2 ML SDV IVPUSH PRN (16:17)
[2024-03-02] MEDS ORDERED: Docusate Sodium 100 MG Cap PO PRN (17:53)
[2024-03-02 18:33] LABS: PH,UMBILICAL ARTERIAL 7.243 (7.18-7.38); PH,UMBILICAL VENOUS 7.316 (7.25-7.45)
[2024-03-02] MEDS: Escitalopram 10 MG Tab PO SCH (21:56)
[2024-03-02] MEDS: Montelukast 10 MG Tab PO SCH (21:56)
[2024-03-02] MEDS: busPIRone 5 MG Tab PO SCH (21:56)
[2024-03-02] MEDS: NIFEdipine 30 MG Tab.ER PO SCH (22:30)
[2024-03-02] MEDS: Lanolin 100% Cream 7 GM Tube TOP PRN (22:34)
[2024-03-02] MEDS: Benzocaine/Menthol 20%-0.5% Spray 78 GM Cannister TOP PRN (22:34)
[2024-03-02] MEDS: Witch Hazel Medicated Pads 40/Jar TOP PRN (22:34)
[2024-03-03] MEDS: Acetaminophen 500 MG Tab PO PRN (01:40)
[2024-03-03] MEDS: Ibuprofen 800 MG Tab PO PRN (01:47)
[2024-03-03] MEDS: oxyCODONE 5 MG Tab PO PRN (02:57)
[2024-03-03 06:15] LABS: HEMATOCRIT 34.5 % (37.0-47.0); HEMOGLOBIN 11.4 g/dL (12.0-16.0)
[2024-03-03 20:01] VITALS: BP 138/93; PULSE 82
== END 2024-03-03 19:45 | disposition home or self-care (01) | DRG 560 ==
LOC: MW.OB 14:54 → OBSVTOIN 03-02 17:30 → MW.OB 03-03 00:07
PROVIDERS: ADMIT Obstetrics & Gynecology; ATTEND Obstetrics & Gynecology
PROC: 10E0XZZ Delivery of Products of Conception, External Approach (ICD-10-PCS; principal; 2024-03-02)
PROC: 0HQ9XZZ Repair Perineum Skin, External Approach (ICD-10-PCS; 2024-03-02)
PROC: 3E0R3BZ Introduction of Anesthetic Agent into Spinal Canal, Percutaneous Approach (ICD-10-PCS; 2024-03-02)
PROC: 00HU33Z Insertion of Infusion Device into Spinal Canal, Percutaneous Approach (ICD-10-PCS; 2024-03-02)
DX: O13.4 Gestational [pregnancy-induced] hypertension without significant proteinuria, complicating childbirth (principal); Z37.0 Single live birth; O70.0 First degree perineal laceration during delivery; O99.824 Streptococcus B carrier state complicating childbirth; Z98.890 Other specified postprocedural states; Z90.89 Acquired absence of other organs; Z3A.38 38 weeks gestation of pregnancy
CPT/HCPCS: 36415; 51702; 59025; 59409; 80053; 82803; 84550; 85014; 85018; 85027; 86592; 86850; 86900; 86901; A9270-GY; J0290; J0665; J2405; J2590; J2795; J3010; J3490; J7120

== ENCOUNTER 2024-04-17 07:58 | Day surgery (SDC) | payer BC ==
[~2024-04-17 07:58] MED LIST: Albuterol 0.083% 2.5 MG/3 ML Neb Soln NEB PRN; HYDROmorphone 1 MG/ML Syringe IVPUSH PRN; Metoclopramide 10 MG/2 ML SDV IVPUSH PRN; Morphine 2 MG/ML SYRINGE IVPUSH PRN; Naloxone 0.4 MG/ML SDV IVPUSH PRN; Ondansetron 4 MG/2 ML SDV IVPUSH PRN; droPERidol 5 MG/2 ML SDV IVPUSH PRN; fentaNYL 50 MCG/ML SDV IVPUSH PRN
[2024-04-17] MEDS ORDERED: ceFAZolin 2 GM in Sodium Chloride 0.9% 50 ML IV ONE (08:47)
[2024-04-17] MEDS ORDERED: Sodium Chloride 0.9% 20 ML SDV IV PRN (08:47)
[2024-04-17] MEDS ORDERED: Sodium Chloride 0.9% 10 ML Syringe FLUSH PRN (08:47)
[2024-04-17] MEDS ORDERED: Sodium Chloride 0.9% 2.5 ML Syringe FLUSH PRN (08:47)
[2024-04-17] MEDS ORDERED: propofoL 50 ML ONE (08:58)
[2024-04-17] MEDS ORDERED: fentaNYL 100 MCG/2 ML SDV ONE (09:01)
[2024-04-17] MEDS ORDERED: dexmedeTOMIDine HCl 200 MCG/2 ML SDV ONE (09:02)
[2024-04-17] MEDS: Lactated Ringers 1,000 ML IV SCH (09:04)
[2024-04-17 09:06] LABS: HEMATOCRIT 37.2 % (37.0-47.0); HEMOGLOBIN 12.2 g/dL (12.0-16.0); MEAN CORPUSCULAR HEMOGLOBIN 27.1 pg (28.0-32.0); MEAN CORPUSCULAR HGB CONC 32.8 g/dL (32.0-36.0); MEAN CORPUSCULAR VOLUME 82.5 fL (83.0-99.0); MEAN PLATELET VOLUME 9.6 fL (9.4-12.3); PLATELET COUNT,PLT 231 K/uL (150-400); RED BLOOD CELL COUNT 4.51 M/uL (4.10-5.30); WHITE BLOOD CELL COUNT,WBC 7.25 K/uL (3.9-11.3)
[2024-04-17] MEDS ORDERED: Ondansetron 4 MG/2 ML SDV ONE (09:20)
[2024-04-17] MEDS ORDERED: ceFAZolin 2 GM Vial ONE (09:27)
[2024-04-17] MEDS ORDERED: Dexamethasone 4 MG/ML 5 ML MDV ONE (09:30)
[2024-04-17] MEDS ORDERED: Ketorolac 30 MG/ML SDV ONE (09:38)
[2024-04-17 11:22] VITALS: BP 101/64; PULSE 61
== END 2024-04-17 10:55 | disposition home or self-care (01) ==
LOC: MERGE 07:58 → MW.SDS 07:58
PROVIDERS: ATTEND Obstetrics & Gynecology
DX: N89.8 Other specified noninflammatory disorders of vagina (principal); J45.909 Unspecified asthma, uncomplicated; E03.9 Hypothyroidism, unspecified; F41.9 Anxiety disorder, unspecified; Z79.890 Hormone replacement therapy; Z79.899 Other long term (current) drug therapy
CPT/HCPCS: 36415; 59160; 85027; J0131; J0690; J1100; J1885; J2405; J2704; J3010; J7120; 00940; J3490